=== PATIENT | female | born 1965 | race Caucasian/White ===

== ENCOUNTER 2016-09-02 08:41 | Emergency (ER) | payer OTHER ==
[~2016-09-02] VITALS: Ht 157.5 cm; Wt 80.5 kg
[2016-09-02 08:46] VITALS: TEMP 36.5; Ht 157.5 cm; Wt 80.5 kg
[2016-09-02] MEDS ORDERED: SODIUM CHLORIDE 0.9% 1000ML 1,000 ML IV STA (09:03)
[2016-09-02 09:13] LABS: BASO % 0.6 %; BASO ABS # 0.05 K/uL (0-0.2); COMPLETE YES; EOS % 1.8 %; HEMATOCRIT 40.3 % (37-47); IG% 0.1 %; LYMPH % 38.3 %; MEAN CELL VOLUME 85.6 fL (80-100); MEAN CORPUSCULAR HEMOGLOBIN 28.2 pg (25-34); MEAN PLATELET VOLUME 9.8 fL (7.4-10.4); NEUT % 51.2 %; PLATELET COUNT 253 K/uL (130-400); RED BLOOD COUNT 4.71 M/uL (4.2-5.4); WHITE BLOOD COUNT 7.83 K/uL (4.8-10.8)
[2016-09-02 09:21] LABS: PARTIAL THROMBOPLASTIN RATIO 1.1; PROTHROMBIN TIME (PATIENT) 10.7 SECONDS (9.0-12.0)
[2016-09-02 09:28] LABS: PREG INTERNAL NEGATIVE QC NEG CLEAR BACKGROUND; PREG INTERNAL POSITIVE QC POS CONTROL LINE
[2016-09-02 09:29] LABS: ALT/SGPT 45 U/L (12-78); BLOOD UREA NITROGEN 11 mg/dl (7-18); BUN/CREATININE RATIO 16.3 (10-20); CALCIUM 9.6 mg/dl (8.5-10.1); CARBON DIOXIDE 30 mmol/L (21-32); CHLORIDE 102 mmol/L (98-107); CREATININE 0.68 mg/dl (0.60-1.20); GLUCOSE 82 mg/dl (70-99); POTASSIUM 3.6 mmol/L (3.5-5.1); SODIUM 141 mmol/L (136-145)
[2016-09-02 09:34] LABS: ALKALINE PHOSPHATASE 57 U/L (45-117); AST/SGOT 32 U/L (15-37); CKMB/CK RATIO 1.7 (0-3.0)
[2016-09-02 10:00] LABS: URINE APPEARANCE CLEAR (CLEAR); URINE BILIRUBIN NEG (NEG); URINE COLOR YELLOW; URINE NITRITE NEG (NEG); URINE SPECIFIC GRAVITY 1.018 (1.000-1.030); UROBILINOGEN NEG (NEG)
--- NOTE | 2016-09-02 10:09 | DIAGNOSTIC IMAGING REPORT ---
CHEST ONE VIEW PORTABLE CLINICAL HISTORY: ABDOMINAL PAIN/GI pain COMPARISON STUDY: 09/12/2015 FINDINGS: The bones soft tissues and hemidiaphragms are normal. The cardiomediastinal silhouette is normal. The lungs are clear. The pulmonary vasculature is normal. IMPRESSION: Negative chest. Electronically signed by: Angelo Grady M.D. 09/02/2016 10:08 AM Dictated Date/Time: 09/02/2016 10:07 AM
--- NOTE | 2016-09-02 10:10 | DIAGNOSTIC IMAGING REPORT ---
KUB HISTORY: Generalized abdominal pain. COMPARISON: None. FINDINGS: The bowel gas pattern is unremarkable. There are no dilated loops of small bowel to suggest an obstruction. No renal calculi. No ureteral calculi. No pneumoperitoneum or pneumatosis. Moderate amount of well-formed stool seen throughout the colon. Round calcifications in the deep pelvis likely represent phleboliths. IMPRESSION: Unremarkable bowel gas pattern. No evidence for bowel obstruction. Moderate stool within the colon. Electronically signed by: Beau Wright M.D. 09/02/2016 10:08 AM Dictated Date/Time: 09/02/2016 10:06 AM
[2016-09-02 10:12] LABS: MANUAL MICROSCOPIC REQUIRED? NO; REVIEW REQ? NO
--- NOTE | 2016-09-02 10:27 | DIAGNOSTIC IMAGING REPORT ---
ULTRASOUND RIGHT UPPER QUADRANT ABDOMEN CLINICAL HISTORY: Epigastric abdominal pain. COMPARISON STUDY: KUB dated 09/02/2016. TECHNIQUE: Real-time, grayscale, and color flow sonography of the right upper quadrant of the abdomen was performed. Images are reviewed in the transverse and longitudinal planes. FINDINGS: Liver: The liver is normal in size and echotexture. There is no intrahepatic biliary ductal dilatation. The main portal vein is patent. Gallbladder: The gallbladder is normal in appearance. No gallstones are identified. There is no gallbladder wall thickening or pericholecystic fluid. A sonographic Rodriguez's sign is reportedly absent. The common bile duct measures up to 0.4 cm in diameter. Pancreas: Visualized portions of the pancreatic head and body are normal in appearance. The splenic vein is patent. Right kidney: Survey images of the right kidney demonstrate normal size and echotexture. There is no hydronephrosis. Ascites: None. IMPRESSION: Unremarkable sonographic assessment of the right upper quadrant. No gallstones are identified. Electronically signed by: Jeff Casiano M.D. 09/02/2016 10:26 AM Dictated Date/Time: 09/02/2016 10:25 AM
--- NOTE | 2016-09-02 10:28 | DIAGNOSTIC IMAGING REPORT ---
ULTRASOUND OF THE ABDOMINAL AORTA CLINICAL HISTORY: Epigastric abdominal pain. Aneurysm screening. COMPARISON STUDY: No priors. TECHNIQUE: Multiple lazcano scale, color Doppler, and spectral Doppler sonograms of the abdominal aorta is performed. Images are reviewed in the transverse and longitudinal planes. FINDINGS: There is no significant atherosclerotic plaque identified throughout the abdominal aorta. The proximal abdominal aorta measures 2.1 x 1.8 cm (AP times transverse), the mid abdominal aorta measures 1.7 x 1.6 cm, and the distal abdominal aorta measures 1.5 x 1.7 cm. IMPRESSION: There is no sonographic evidence of abdominal aortic aneurysm. Electronically signed by: Jeff Casiano M.D. 09/02/2016 10:27 AM Dictated Date/Time: 09/02/2016 10:26 AM
--- NOTE | 2016-09-02 10:34 | EMERGENCY ROOM VISIT NOTE ---
History Report prepared by Adonis: Nidia Albarran Under the Supervision of: Dr. Noe Oliveira D.O. First contact with patient: 08:56 Chief Complaint: ABDOMINAL PAIN Stated Complaint: ABD. PAIN History of Present Illness The patient is a 51 year old female who presents to the Emergency Room with complaints of persistent epigastric abdominal pain that began four days ago. She currently rates her discomfort as a 6/10 in severity. The patient states that movement worsens her discomfort. She describes her discomfort as a chewing pain and itchy. The patient denies any pain radiating to her chest or back, shortness of breath, nausea, diarrhea, vomiting, or change in food. She notes a persistent cough for the past six months. The patient denies any current active medical problems, but notes a history of ulcers and a previous breast surgery. She denies being on Prilosec. The patient denies any alcohol or tobacco use. She states that she has used Tylenol for pain. The patient denies seeing her PCP for her discomfort. The patient denies any decrease in appetite. She states that her last menstrual cycle was last evening which was normal. She denies that her discomfort is worsened with eating. Source of History: patient Onset: four days ago Position: abdomen (epigastric) Symptom Intensity: 6/10 Quality: other (chewing itchy) Timing: other (persistent) Associated Symptoms: No SOB, No back pain, No chest pain, No diarrhea, No nausea, No vomiting Review of Systems See HPI for pertinent positives & negatives. A total of 10 systems reviewed and were otherwise negative. Past Medical & Surgical Medical Problems: (1) Chest pain (2) Chest pain (3) Cyst removal from breast (4) Depression Family History Patient reports no known family medical history. Social History Smoking Status: Never Smoker Alcohol Use: occasionally Drug Use: none Marital Status: Housing Status: lives with family Occupation Status: student Current/Historical Medications Scheduled Omeprazole (Prilosec), 20 MG PO DAILY Ranitidine Hcl (Zantac), 150 MG PO BID Allergies Coded Allergies: Acetaminophen (Verified Adverse Reaction, Unknown, nausea, 09/02/16) Oxycodone (Verified Adverse Reaction, Unknown, nausea, 09/02/16) Physical Exam Vital Signs Date Time Temp Pulse Resp B/P Pulse Ox O2 Delivery O2 Flow Rate FiO2 09/02/16 12:06 66 14 92/62 97 3/13/17 10:54 58 14 112/75 96 Room Air 09/02/16 08:46 36.5 62 18 138/76 100 Room Air Physical Exam GENERAL: Patient is awake, alert, and in no acute distress. Patient is resting comfortably and showing no signs of anxiety EYES: The conjunctivae are clear. The pupils are round and reactive. EARS, NOSE, MOUTH AND THROAT: The nose is without any evidence of any deformity. Mucous membranes are moist tongue is midline NECK: The neck is nontender and supple. RESPIRATORY: Normal respiratory effort is noted there is no evidence of wheezing rhonchi or rales CARDIOVASCULAR: Regular rate and rhythm noted there no murmurs rubs or gallops normal S1 normal S2 GASTROINTESTINAL: The abdomen soft with epigastric and right upper quadrant tenderness to palpation. No guarding or rigidity noted. No lower abdominal tenderness was noted. BACK: No midline tenderness or or step-off noted range of motion in flexion extension as well as rotation no signs of muscle spasm noted MUSCULOSKELETAL/EXTREMITIES: There is no evidence of gross deformity full range of motion is noted in the hips and shoulders SKIN: There is no obvious evidence of any rash. There are no petechiae, pallor or cyanosis noted. NEUROLOGIC: Patient is awake alert and oriented x3 strength is symmetric patellar reflexes are 2+ bilaterally Medical Decision & Procedures ER Provider Diagnostic Interpretation: Radiology results as stated below per my review and radiologist interpretation: KUB HISTORY: Generalized abdominal pain. COMPARISON: None. FINDINGS: The bowel gas pattern is unremarkable. There are no dilated loops of small bowel to suggest an obstruction. No renal calculi. No ureteral calculi. No pneumoperitoneum or pneumatosis. Moderate amount of well-formed stool seen throughout the colon. Round calcifications in the deep pelvis likely represent phleboliths. IMPRESSION: Unremarkable bowel gas pattern. No evidence for bowel obstruction. Moderate stool within the colon. Electronically signed by: Beau Wright M.D. 09/02/2016 10:08 AM Dictated Date/Time: 09/02/2016 10:06 AM CHEST ONE VIEW PORTABLE CLINICAL HISTORY: ABDOMINAL PAIN/GI pain COMPARISON STUDY: 09/12/2015 FINDINGS: The bones soft tissues and hemidiaphragms are normal. The cardiomediastinal silhouette is normal. The lungs are clear. The pulmonary vasculature is normal. IMPRESSION: Negative chest. Electronically signed by: Angelo Grady M.D. 09/02/2016 10:08 AM Dictated Date/Time: 09/02/2016 10:07 AM ULTRASOUND OF THE ABDOMINAL AORTA CLINICAL HISTORY: Epigastric abdominal pain. Aneurysm screening. COMPARISON STUDY: No priors. TECHNIQUE: Multiple lazcano scale, color Doppler, and spectral Doppler sonograms of the abdominal aorta is performed. Images are reviewed in the transverse and longitudinal planes. FINDINGS: There is no significant atherosclerotic plaque identified throughout the abdominal aorta. The proximal abdominal aorta measures 2.1 x 1.8 cm (AP times transverse), the mid abdominal aorta measures 1.7 x 1.6 cm, and the distal abdominal aorta measures 1.5 x 1.7 cm. IMPRESSION: There is no sonographic evidence of abdominal aortic aneurysm. Electronically signed by: Jeff Casiano M.D. 09/02/2016 10:27 AM Dictated Date/Time: 09/02/2016 10:26 AM ULTRASOUND RIGHT UPPER QUADRANT ABDOMEN CLINICAL HISTORY: Epigastric abdominal pain. COMPARISON STUDY: KUB dated 09/02/2016. TECHNIQUE: Real-time, grayscale, and color flow sonography of the right upper quadrant of the abdomen was performed. Images are reviewed in the transverse and longitudinal planes. FINDINGS: Liver: The liver is normal in size and echotexture. There is no intrahepatic biliary ductal dilatation. The main portal vein is patent. Gallbladder: The gallbladder is normal in appearance. No gallstones are identified. There is no gallbladder wall thickening or pericholecystic fluid. A sonographic Rodriguez's sign is reportedly absent. The common bile duct measures up to 0.4 cm in diameter. Pancreas: Visualized portions of the pancreatic head and body are normal in appearance. The splenic vein is patent. Right kidney: Survey images of the right kidney demonstrate normal size and echotexture. There is no hydronephrosis. Ascites: None. IMPRESSION: Unremarkable sonographic assessment of the right upper quadrant. No gallstones are identified. Electronically signed by: Jeff Casiano M.D. 09/02/2016 10:26 AM Dictated Date/Time: 09/02/2016 10:25 AM Laboratory Results 09/02/16 09:00 Red Blood Count 4.71, Mean Corpuscular Volume 85.6, Mean Corpuscular Hemoglobin 28.2, Mean Corpuscular Hemoglobin Concent 33.0, Mean Platelet Volume 9.8, Neutrophils (%) (Auto) 51.2, Lymphocytes (%) (Auto) 38.3, Monocytes (%) (Auto) 8.0, Eosinophils (%) (Auto) 1.8, Basophils (%) (Auto) 0.6, Neutrophils # (Auto) 4.00, Lymphocytes # (Auto) 3.00, Monocytes # (Auto) 0.63, Eosinophils # (Auto) 0.14, Basophils # (Auto) 0.05 09/02/16 09:00 Test 09/02/16 09:00 09/02/16 09:45 White Blood Count 7.83 K/uL (4.8-10.8) Red Blood Count 4.71 M/uL (4.2-5.4) Hemoglobin 13.3 g/dL (12.0-16.0) Hematocrit 40.3 % (37-47) Mean Corpuscular Volume 85.6 fL (80-100) Mean Corpuscular Hemoglobin 28.2 pg (25-34) Mean Corpuscular Hemoglobin Concent 33.0 g/dl (32-36) Platelet Count 253 K/uL (130-400) Mean Platelet Volume 9.8 fL (7.4-10.4) Neutrophils (%) (Auto) 51.2 % Lymphocytes (%) (Auto) 38.3 % Monocytes (%) (Auto) 8.0 % Eosinophils (%) (Auto) 1.8 % Basophils (%) (Auto) 0.6 % Neutrophils # (Auto) 4.00 K/uL (1.4-6.5) Lymphocytes # (Auto) 3.00 K/uL (1.2-3.4) Monocytes # (Auto) 0.63 K/uL (0.11-0.59) Eosinophils # (Auto) 0.14 K/uL (0-0.5) Basophils # (Auto) 0.05 K/uL (0-0.2) RDW Standard Deviation 40.5 fL (36.4-46.3) RDW Coefficient of Variation 12.8 % (11.5-14.5) Immature Granulocyte % (Auto) 0.1 % Immature Granulocyte # (Auto) 0.01 K/uL (0.00-0.02) Prothrombin Time 10.7 SECONDS (9.0-12.0) Prothromb Time International Ratio 1.0 (0.9-1.1) Activated Partial Thromboplast Time 27.3 SECONDS (21.0-31.0) Partial Thromboplastin Ratio 1.1 Anion Gap 9.0 mmol/L (3-11) Est Creatinine Clear Calc Drug Dose 94.1 ml/min Estimated GFR () 115.7 Estimated GFR (Non- 99.9 BUN/Creatinine Ratio 16.3 (10-20) Calcium Level 9.6 mg/dl (8.5-10.1) Total Bilirubin 0.2 mg/dl (0.2-1) Direct Bilirubin < 0.1 mg/dl (0-0.2) Aspartate Amino Transf (AST/SGOT) 32 U/L (15-37) Alanine Aminotransferase (ALT/SGPT) 45 U/L (12-78) Alkaline Phosphatase 57 U/L (45-117) Total Creatine Kinase 46 U/L (26-192) Creatine Kinase MB 0.8 ng/ml (0.5-3.6) Creatine Kinase MB Ratio 1.7 (0-3.0) Troponin I < 0.015 ng/ml (0-0.045) Total Protein 7.7 gm/dl (6.4-8.2) Albumin 3.9 gm/dl (3.4-5.0) Lipase 176 U/L (73-393) Human Chorionic Gonadotropin, Qual NEG (NEG) Urine Color YELLOW Urine Appearance CLEAR (CLEAR) Urine pH 5.0 (4.5-7.5) Urine Specific [place] 1.018 (1.000-1.030) Urine Protein NEG (NEG) Urine Glucose (UA) NEG (NEG) Urine Ketones NEG (NEG) Urine Occult Blood NEG (NEG) Urine Nitrite NEG (NEG) Urine Bilirubin NEG (NEG) Urine Urobilinogen NEG (NEG) Urine Leukocyte Esterase NEG (NEG) Laboratory results per my review. Medications Administered Medications (Trade) Dose Ordered Sig/Aviva Route Start Time Stop Time Status Last Admin Dose Admin Sodium Chloride (Nss 1000ml) 1,000 ml @ 999 mls/hr Q1H1M STAT IV 09/02/16 09:03 09/02/16 10:03 DC 09/02/16 09:21 999 MLS/HR Al Hydroxide/Mg Hydroxide (Maalox Susp) 30 ml NOW STAT PO 09/02/16 10:52 3/13/17 10:53 DC 09/02/16 11:03 30 ML Pantoprazole Sodium (Protonix Tab) 40 mg NOW STAT PO 09/02/16 10:52 09/02/16 10:53 DC 09/02/16 11:03 40 MG ECG Indication: abdominal pain Rate (beats per minute): 55 Rhythm: sinus bradycardia Findings: no ectopy, other (no acute ST segmenta abnormalities) Comparison ECG Date: 09/12/15 Change: no significant change ED Course 0858: The patient was evaluated in room A2. A complete history and physical examination were performed. 0903: Ordered Sodium Chloride 1000 ml @ 999 mls/hr IV. 1049: I reevaluated the patient and she is resting comfortably. 1052: Ordered Protonix Tab 40 mg PO, Maalox Susp 30 ml PO. 1204: I reevaluated the patient and she is resting comfortably. I discussed all the exam findings with her and I discussed the treatment plan. She verbalized complete understanding and agreement. She is ready to go home. Medical Decision Differential diagnosis: Etiologies such as appendicitis, diverticulitis, PUD, biliary pathology, UTI, pancreatitis, obstruction, mesenteric ischemia, aortic pathology, infections, inflammatory bowel disease, renal colic, as well as others were entertained. Nursing notes reviewed. The patient is a 51-year-old female who presented to the emergency department for an evaluation of epigastric pain. The patient had reproducible epigastric and right upper quadrant pain. The patient's physical exam was not consistent with an acute surgical abdomen. She did not have an elevated white blood cell count. X-rays did not reveal signs of free air. Ultrasound of the gallbladder did not reveal any signs of acute cholecystitis. The patient was treated with Maalox and proton pump inhibitor in the emergency department. I discussed the patient's laboratory and radiographic studies with her. She was encouraged to rest and avoid any strenuous activity. She was also encouraged to continue all medications as prescribed. I recommended 24-hour follow-up with her primary care physician but because of the weather I also encouraged her to return to the emergency department immediately if symptoms change worsen or the need arises. Otherwise she was encouraged to return if she develops fever severe abdominal pain rigid abdomen might duration of pain to the right lower quadrant or if need arises. Impression Primary Impression: Epigastric abdominal pain Additional Impression: Gastritis Scribe Attestation The scribe's documentation has been prepared under my direction and personally reviewed by me in its entirety. I confirm that the note above accurately reflects all work, treatment, procedures, and medical decision making performed by me. Departure Information Dispostion Home / Self-Care Prescriptions Ranitidine Hcl (ZANTAC) 150 Mg Tab 150 MG PO BID, #60 TAB Prov: Noe Oliveira, DO 09/02/16 Omeprazole (Prilosec) 20 Mg Capcr 20 MG PO DAILY, #30 CAP Prov: Noe Oliveira, DO 09/02/16 Referrals Lambert Fatima M.D. (PCP) Forms Call Back Authorization, HOME CARE DOCUMENTATION FORM, IMPORTANT VISIT INFORMATION Patient Instructions ED Abd Pain Unkn Cause Fem, My [facility] Additional Instructions Continue all medications as prescribed. Drink plenty clear liquids. Call your family to schedule a follow-up appointment for this week. Your primary paid search analyst to schedule a follow-up appointment as well. Continue using Maalox or Mylanta as directed for symptomatically relief. Return to the emergency department immediately if he develop worsening symptoms such as high fever severe pain severe nausea vomiting or if need arises. Problem Qualifiers Additional Impression: Gastritis Gastritis type: unspecified gastritis Chronicity: acute Gastritis bleeding : presence of bleeding unspecified Qualified Codes: K29.00 - Acute gastritis without bleeding
[2016-09-02] MEDS ORDERED: PANTOprazole SOD 40 MG TAB PO STA (10:52)
[2016-09-02] MEDS ORDERED: ALUMINUM/MAGNESIUM SUSP 30 ML UDC PO STA (10:52)
[2016-09-02] MEDS ORDERED: OMEP20CA59 PO (11:11)
[2016-09-02] MEDS ORDERED: RANI150T3 PO (11:11)
[2016-09-02 12:06] VITALS: BP 92/62; PULSE 66; O2SAT 97
== END 2016-09-02 12:17 | disposition home or self-care (01) ==
LOC: C.EDB 08:42 → C.EDA 12:17
DX: R10.13 Epigastric pain (principal); K29.00 Acute gastritis without bleeding; F32.9 Major depressive disorder, single episode, unspecified; Z79.899 Other long term (current) drug therapy

== ENCOUNTER 2018-02-08 19:14 | Emergency (ER) | payer OTHER ==
[~2018-02-08] VITALS: Ht 157.5 cm; Wt 53.3 kg
[2018-02-08 19:19] VITALS: TEMP 36.7; Ht 157.5 cm; Wt 53.3 kg
--- NOTE | 2018-02-08 19:39 | EMERGENCY ROOM VISIT NOTE ---
History First contact with patient: 19:21 Chief Complaint: HEMATURIA Stated Complaint: URINATING BLOOD History of Present Illness The patient is a 52 year old female who presents to the Emergency Room with complaints of hematuria that started approximately 1 week ago. The patient also notes urinary frequency and a feeling that she is not emptying. She denies any flank pain, nausea, vomiting or fever. No problems with bowel movements. She is not on any anticoagulation. She denies any recent illnesses. Review of Systems 10 system review performed and negative unless noted in HPI or below Past Medical/Surgical History Medical Problems: (1) Chest pain (2) Chest pain (3) Cyst removal from breast (4) Depression Family History Patient reports no known family medical history. Social History Smoking Status: Never Smoker Alcohol Use: occasionally Drug Use: none Marital Status: Housing Status: lives with family Occupation Status: student Current/Historical Medications Scheduled Ciprofloxacin Hcl (Cipro), 500 MG PO BID Physical Exam Vital Signs Date Time Temp Pulse Resp B/P (MAP) Pulse Ox O2 Delivery O2 Flow Rate FiO2 02/08/18 21:05 80 20 118/70 98 02/08/18 19:19 36.7 67 18 111/71 99 Room Air Physical Exam VITALS: Vitals are noted on the nurse's note and reviewed by myself. Vital signs stable. GENERAL: 52-year-old female, in no acute distress, nondiaphoretic, well- developed well-nourished. SKIN: The skin was without rashes, erythema, edema, or bruising. . HEAD: Normocephalic atraumatic. EYES: Conjunctivae without injection, sclerae without icterus. Extraocular movements intact. MOUTH: Mucous membranes moist. NECK: No JVD. HEART: Regular rate and rhythm without murmurs gallops or rubs. LUNGS: Clear to auscultation bilaterally without wheezes, rales or rhonchi. No accessory muscle use. ABDOMEN: Positive bowel sounds x 4.Soft, nontender, without organomegaly. No guarding or rebound tenderness. No CVA tenderness bilaterally. MUSCULOSKELETAL: No muscle atrophy, erythema, or edema noted. Strength 5/5 throughout. NEURO: Patient was alert and oriented to person place and time. Normal sensation to touch. No focal neurological deficits. Medical Decision & Procedures Laboratory Results 02/08/18 19:47 Red Blood Count 4.64, Mean Corpuscular Volume 86.4, Mean Corpuscular Hemoglobin 27.8, Mean Corpuscular Hemoglobin Concent 32.2, Mean Platelet Volume 10.5, Neutrophils (%) (Auto) 71.8, Lymphocytes (%) (Auto) 18.6, Monocytes (%) (Auto) 6.8, Eosinophils (%) (Auto) 2.3, Basophils (%) (Auto) 0.3, Neutrophils # (Auto) 8.06, Lymphocytes # (Auto) 2.09, Monocytes # (Auto) 0.76, Eosinophils # (Auto) 0.26, Basophils # (Auto) 0.03 02/08/18 19:47 Test 02/08/18 19:47 White Blood Count 11.22 K/uL (4.8-10.8) Red Blood Count 4.64 M/uL (4.2-5.4) Hemoglobin 12.9 g/dL (12.0-16.0) Hematocrit 40.1 % (37-47) Mean Corpuscular Volume 86.4 fL (80-100) Mean Corpuscular Hemoglobin 27.8 pg (25-34) Mean Corpuscular Hemoglobin Concent 32.2 g/dl (32-36) Platelet Count 254 K/uL (130-400) Mean Platelet Volume 10.5 fL (7.4-10.4) Neutrophils (%) (Auto) 71.8 % Lymphocytes (%) (Auto) 18.6 % Monocytes (%) (Auto) 6.8 % Eosinophils (%) (Auto) 2.3 % Basophils (%) (Auto) 0.3 % Neutrophils # (Auto) 8.06 K/uL (1.4-6.5) Lymphocytes # (Auto) 2.09 K/uL (1.2-3.4) Monocytes # (Auto) 0.76 K/uL (0.11-0.59) Eosinophils # (Auto) 0.26 K/uL (0-0.5) Basophils # (Auto) 0.03 K/uL (0-0.2) RDW Standard Deviation 42.5 fL (36.4-46.3) RDW Coefficient of Variation 13.4 % (11.5-14.5) Immature Granulocyte % (Auto) 0.2 % Immature Granulocyte # (Auto) 0.02 K/uL (0.00-0.02) Urine Color DK YELLOW Urine Appearance TURBID (CLEAR) Urine pH 7.0 (4.5-7.5) Urine Specific [place] 1.020 (1.000-1.030) Urine Protein 3+ (NEG) Urine Glucose (UA) NEG (NEG) Urine Ketones TRACE (NEG) Urine Occult Blood 3+ (NEG) Urine Nitrite POS (NEG) Urine Bilirubin NEG (NEG) Urine Urobilinogen POS (NEG) Urine Leukocyte Esterase LARGE (NEG) Urine WBC (Auto) >30 /hpf (0-5) Urine RBC (Auto) >30 /hpf (0-4) Urine Hyaline Casts (Auto) 1-5 /lpf (0-5) Urine Epithelial Cells (Auto) 0-5 /lpf (0-5) Urine Bacteria (Auto) 4+ (NEG) Anion Gap 7.0 mmol/L (3-11) Est Creatinine Clear Calc Drug Dose 74.8 ml/min Estimated GFR () 114.9 Estimated GFR (Non- 99.2 BUN/Creatinine Ratio 16.3 (10-20) Calcium Level 8.7 mg/dl (8.5-10.1) Medications Administered Medications (Trade) Dose Ordered Sig/Aviva Route Start Time Stop Time Status Last Admin Dose Admin Sodium Chloride 1,000 ml @ 999 mls/hr Q1H1M ONCE IV 02/08/18 20:45 02/08/18 21:45 DC 02/08/18 21:04 999 MLS/HR Ciprofloxacin (Cipro Tab) 500 mg NOW STAT PO 02/08/18 20:32 02/08/18 20:34 DC 02/08/18 21:04 500 MG Ibuprofen (Motrin Tab) 600 mg ONE STAT PO 02/08/18 21:20 02/08/18 21:21 DC 02/08/18 21:25 600 MG ED Course Patient was seen and examined Vital signs including blood pressure were reviewed medications list was verified with patient Labs were obtained, and a saline lock was established Upon reevaluation, the patient was resting comfortably. We discussed her results. She voiced understanding, was comfortable being discharged home. The patient did request something for pain. She was given ibuprofen 600 mg p.o. She was given 1 dose of Cipro 500 mg p.o. I reviewed discharge instructions the patient. They voiced understanding and had no further questions. Medical Decision Differential diagnosis: UTI, pyelonephritis, renal failure, malignancy, ureteral stone, among others were entertained This patient is a 52-year-old female that presents to the emergency department with hematuria. On exam, she was nontoxic in appearance. Afebrile. There is no leukocytosis. Renal function intact. Her urinalysis is consistent with a UTI. The patient was given 1 dose of Cipro here. Given the hematuria, she will be treated with a seven-day course of Cipro. A urine culture was sent. She will follow-up with her PCP this week, and agrees to return with any worsening symptoms. This chart was completed in part utilizing [employer] Speech Voice Recognition software. Attempts were made to minimize the grammatical errors, random word insertions, pronoun errors and incomplete sentences. Any formal questions or concerns about the content, text or information contained within the body of this dictation should be directly addressed to the provider for clarification. Medication Reconcilliation Current Medication List: was personally reviewed by me Blood Pressure Screening Patient's blood pressure: Normal blood pressure Impression Primary Impression: UTI (urinary tract infection) Departure Information Dispostion Home / Self-Care Condition GOOD Prescriptions Ciprofloxacin Hcl (CIPRO) 500 Mg Tab 500 MG PO BID for 7 Days, #14 TAB Prov: Seema Gonzalez PA-C 02/08/18 Referrals Lambert Fatima M.D. (PCP) Patient Instructions My [facility] Additional Instructions You have been seen in the emergency department for a urinary tract infection. Please take the ENTIRE course of ciprofloxacin Stay well-hydrated. Increase fluids over the next several days. Please follow-up with your primary care physician if there is no improvement in your symptoms in the next 2-3 days Please do not hesitate to return to the emergency department with any new, worsening or concerning symptoms; especially, fever, flank pain or vomiting It was a pleasure participating in your care this evening
[2018-02-08 19:59] LABS: BASO % 0.3 %; BASO ABS # 0.03 K/uL (0-0.2); EOS % 2.3 %; EOS ABS # 0.26 K/uL (0-0.5); HEMATOCRIT 40.1 % (37-47); HEMOGLOBIN 12.9 g/dL (12.0-16.0); IG# 0.02 K/uL (0.00-0.02); LYMPH % 18.6 %; LYMPH ABS # 2.09 K/uL (1.2-3.4); MEAN CELL VOLUME 86.4 fL (80-100); MEAN CORPUSCULAR HEMOGLOBIN 27.8 pg (25-34); MEAN CORPUSCULAR HGB CONC 32.2 g/dl (32-36); MEAN PLATELET VOLUME 10.5 fL (7.4-10.4); MONO % 6.8 %; MONO ABS # 0.76 K/uL (0.11-0.59); NEUT % 71.8 %; NEUT ABS # 8.06 K/uL (1.4-6.5); PLATELET COUNT 254 K/uL (130-400); RED CELL DISTRIBUTION WIDTH CV 13.4 % (11.5-14.5); RED CELL DISTRIBUTION WIDTH SD 42.5 fL (36.4-46.3); WHITE BLOOD COUNT 11.22 K/uL (4.8-10.8)
[2018-02-08 20:21] LABS: CALCIUM 8.7 mg/dl (8.5-10.1); CREATININE 0.68 mg/dl (0.60-1.20); POTASSIUM 3.6 mmol/L (3.5-5.1)
[2018-02-08] MEDS ORDERED: CIPROFLOXACIN 500 MG TAB PO STA (20:32)
[2018-02-08] MEDS ORDERED: SODIUM CHLORIDE 0.9% 1000ML 1,000 ML IV ONE (20:45)
[2018-02-08] MEDS ORDERED: CIPR-255 PO (21:02)
[2018-02-08 21:05] VITALS: BP 118/70; PULSE 80; O2SAT 98
[2018-02-08] MEDS ORDERED: IBUPROFEN 600 MG TAB PO STA (21:20)
[2018-02-08] MEDS ORDERED: MAGNESIUM OXIDE 400 MG TAB PO STA (21:25)
--- NOTE | 2018-02-10 12:59 | Pharmacy Progress Note ---
ED Pharmacist Culture FollowUp Date of Service: Feb 10, 2018. Patient was sent home with a prescription for Ciprofloxacin 500mg PO BID x 7 days, which should cover the e coli growing from the patient's URINE culture.
== END 2018-02-08 21:35 | disposition home or self-care (01) ==
LOC: C.EDB 19:17 → C.EDA 21:35
DX: N39.0 Urinary tract infection, site not specified (principal); F32.9 Major depressive disorder, single episode, unspecified

== ENCOUNTER 2022-03-21 17:13 | Inpatient (IN) ==
--- NOTE | 2022-03-21 17:24 | ED Triage Note ---
Date of Service March 21, 2022 History of Present Illness This patient was briefly evaluated while in triage. An abbreviated physical exam was performed. This patient is a 56-year-old Female with past medical history of GERD who presents to the ED for evaluation of nausea, vomiting, diarrhea that started today. Has had a sore throat for 5 days. Some chills today. Also has abdominal pain all over. No blood noticed in the emesis or stool. Denies alcohol use. No known sick contacts. Physical Exam CONSTITUTIONAL: No acute distress. Appears to feel unwell. RESPIRATORY: Clear to auscultation bilaterally. Equal expansion bilaterally. CARDIOVASCULAR: Regular rate and rhythm with no murmurs, rubs or gallops. Normal peripheral perfusion. No peripheral edema. GASTROINTESTINAL: Diffuse tenderness, no acute abdomen. NEUROLOGIC: Alert and oriented X 4 with normal affect. Initial orders for labs and / or imaging were placed and patient was placed in the waiting area until a bed is available. Please see further documentation for the full ED course.
[2022-03-21] MEDS ORDERED: ONDANSETRON INJ 2 MG/ML 2 ML VIAL IV STA ×2 (17:30→21:55)
[2022-03-21] MEDS ORDERED: SODIUM CHLORIDE 0.9% 1000ML 1,000 ML IV STA (17:30)
[2022-03-21 18:14] LABS: Basophils # (auto) 0.05 K/uL (0-0.2); Basophils % (auto) 0.3 %; Eosinophils # (auto) 0.26 K/uL (0-0.50); Eosinophils % (auto) 1.6 %; Hematocrit (blood only) 46.6 % (34.1-44.9); Hemoglobin 15.1 g/dl (12.0-16.0); Immature Granulocytes # (auto) 0.06 K/uL (0.00-0.02); Immature Granulocytes % (auto) 0.4 %; Lymphocytes # (auto) 1.07 K/uL (1.2-3.4); Lymphocytes % (auto) 6.6 %; Mean Corpuscular Hemoglobin 27.4 pg (25.0-34.0); Mean Corpuscular Hgb Conc 32.4 g/dL (32.0-36.0); Mean Corpuscular Volume 84.4 fL (80.0-100.0); Mean Platelet Volume 10.6 fL (9.4-12.3); Monocytes # (auto) 1.07 K/uL (0.24-0.82); Monocytes % (auto) 6.6 %; Neutrophils # (auto) 13.81 K/uL (1.4-6.5); Neutrophils % (auto) 84.5 %; Platelet Count 265 K/uL (130-400); RDW Coefficient of Variation 13.3 % (11.5-14.5); RDW Standard Deviation 41.1 fL (36.4-46.3); Red Blood Count 5.52 M/uL (3.93-5.22); White Blood Count 16.32 K/ul (4.8-10.8)
[2022-03-21 18:22] LABS: Appearance Urine Cloudy (Clear); Bacteria Urine Automated Negative (Negative); Blood Urine Negative (Negative); Color Urine Dark Yellow; Epithelial Cell Urine Auto >30 /lpf (0-5); Glucose Urine UA Negative (Negative); Ketones Urine 1+ (Negative); Leukocyte Esterase Urine Trace (Negative); Nitrite Urine Negative (Negative); Protein Urine 2+ (Negative); Specific Gravity Urine 1.022 (1.000-1.030); Urobilinogen Urine Negative (Negative); pH Urine 5.5 (4.5-7.5)
[2022-03-21 18:23] LABS: Prothrombin Time 10.8 Seconds (9.0-12.0)
[2022-03-21 18:32] LABS: Bilirubin Urine 1+ (Negative)
[2022-03-21 18:34] LABS: Albumin Globulin Ratio 1.4 (0.9-2); Albumin Level 4.8 gm/dl (3.4-5.0); BUN Creatinine Ratio 15.8 (10-20); Bilirubin,Total 0.4 mg/dl (0.2-1.0); Calcium 10.4 mg/dl (8.5-10.1); Creatinine Clr Calc Pharmacy 53.4 ml/min; Est GFR (African American) 76.5 ml/min; Globulin 3.4 gm/dl (2.5-4.0); Potassium 4.1 mmol/L (3.5-5.1); Total Protein 8.2 gm/dl (6.0-8.3)
[2022-03-21] MEDS ORDERED: ACETAMINOPHEN 1,000 MG/100 ML VIAL IV STA (18:46)
[2022-03-21] MEDS ORDERED: KETOROLAC TROMETHAMINE 15 MG/ML VIAL IV STA (18:46)
[2022-03-21] MEDS ORDERED: SODIUM CHLORIDE 0.9% 1000ML 1,000 ML IV ONE (18:46)
[2022-03-21 18:47] LABS: Mucus Urine Present (None Prsent)
[2022-03-21 18:48] LABS: RBC Urine Automated 0-4 /hpf (0-4)
--- NOTE | 2022-03-21 18:51 | Emergency Department Note ---
Impression & Plan Acute upper abdominal pain, Leukocytosis, Ileitis, Diarrhea ED Provider Note NAME: PATRICIA AC AGE: 56 SEX: F : 1965 ARRIVES VIA: Walk-In INFORMANT: [Patient] ED PROVIDER(S): [Jeff James MD] CHIEF COMPLAINT: Diarrhea and vomiting HISTORY OF PRESENT ILLNESS: The patient is a 56-year-old female who has had 5 days of a sore throat and some throat tightness. Today, she did not feel well this morning and began having vomiting and diarrhea. She feels dizzy and lightheaded. She has mid abdominal pain that is a 10/10. No blood in the stool or vomit. She has not had fever but she has noticed some chills. No cough or congestion. No urinary complaints. No recent sick contacts. REVIEW OF SYSTEMS: See HPI for pertinent positives and negatives. A total of ten systems were reviewed and were otherwise negative. PMHx/PSHx: See Below SOCIAL HISTORY: See Below. PHYSICAL EXAM: GENERAL: Patient is in no acute distress. HEENT: No acute trauma, normocephalic atraumatic, mucous membranes moist, no nasal congestion, no scleral icterus. Very mild throat erythema without exudate. No uvular swelling. NECK: No stridor, no adenopathy, no meningismus, trachea is midline. LUNGS: Clear to auscultation bilaterally, no wheeze, no rhonchi, breath sounds equal. HEART: Without murmurs gallops or rubs, regular rate and rhythm. ABDOMEN: Soft, moderately tender to the entire upper abdomen, no peritonitis. EXTREMITIES: No cyanosis or edema, full range of motion of all the joints without pain or difficulty, no signs for acute trauma. NEUROLOGIC: Oriented x 3, no acute motor or sensory deficits, no focal weakness. SKIN: No rash, no jaundice, no diaphoresis. DIFFERENTIAL DIAGNOSIS: Appendicitis, ovarian cyst, ovarian torsion, diverticulitis, UTI, obstruction, mesenteric ischemia, aortic pathology, inflammatory bowel disease, renal colic, PUD, pancreatitis, biliary pathology, hernia, volvulus, constipation, foodborne or viral illness, COVID-19, strep pharyngitis, as well as other pathologies. EMERGENCY DEPARTMENT COURSE/PROCEDURES: ECG: Indication was abdominal pain. The ECG shows a normal sinus rhythm with a rate of 71. There is no ST elevation, there are no PVCs. The QTc is 436. Some baseline artifact is seen. Continuous Cardiac Monitoring: An order was placed for continuous cardiac monitoring. The monitor shows a rate of 86 with normal sinus rhythm. MEDICAL DECISION MAKING: There is a moderate leukocytosis, this could be consistent with infection. There is a normal hemoglobin and platelet count. No renal failure or significant electrolyte abnormality. Lactic acid level is not elevated making severe sepsis less likely. No worrisome liver enzyme elevation. No evidence for pancreatitis. ECG shows a normal sinus rhythm, no ST elevation. Cardiac enzyme testing x1 is not consistent with acute cardiac injury. Urinalysis shows contamination, no obvious infection. COVID, mono, influenza, RSV and strep testing returned negative. Abdominal and pelvis CT suggests ileitis. No abscess, no bowel obstruction. Chest x-ray did not show pneumonia or free air. Patient was given IV saline, 2 L. She was given IV Zofran for nausea, second dose of IV Zofran was given. She received IV Toradol and IV morphine for pain. She was given IV Tylenol for pain. The patient presents with a sore throat and abdominal pain. She appears to have ileitis by work-up. Her illness certainly may be viral. Given the findings, given her complaints, I do think further work-up and care in the hospital is warranted. I spoke with the patient and case management. The on-call hospitalist was consulted. Past Med/Surg History Medical History (Updated 03/22/22 @ 02:03 by Jeff James MD) GERD (gastroesophageal reflux disease) Social History Smoking Status: Never smoker Preferred Language: Cymraes Feels Safe at Home: Yes Allergies Allergies Allergy/AdvReac Type Severity Reaction Status Date / Time oxycodone AdvReac Unknown nausea Verified 09/29/18 22:56 Home Meds Home Medications Medication Instructions Recorded Confirmed albuterol sulfate 90 mcg/actuation 2 puff inhalation Q4 PRN Wheezing 09/29/18 09/29/18 aerosol inhaler (Ventolin HFA) fluticasone propionate 50 2 spray intranasal Q12 09/29/18 09/29/18 mcg/actuation nasal spray,suspension (Flonase Allergy Relief) omeprazole 20 mg capsule,delayed 20 mg PO DAILY 09/29/18 09/29/18 release ranitidine HCl 150 mg tablet 300 mg PO HS 09/29/18 09/29/18 (Zantac) Results & Data (ED) Vital Signs Vital Signs - 24 hr 03/21/22 17:23 03/21/22 21:14 03/21/22 23:00 Temperature 36.5 C Temperature Source Temporal Artery Scan Pulse Rate 86 Pulse Rate [Finger] 65 97 H Pulse Rhythm [Finger] Regular Respiratory Rate 20 18 20 Respiratory Effort / Characteristics Non-Labored Non-Labored Respiratory Depth Normal Normal Blood Pressure 90/53 L Blood Pressure [Right Arm] 118/76 101/61 Blood Pressure Mean 65 Blood Pressure Mean [Right Arm] 90 74 Blood Pressure Position [Right Arm] Lying Pulse Oximetry 100 97 93 Oxygen Delivery Method Room Air Room Air Sepsis Recent Fever Within 48 Hours No Sepsis New/Unexplained Change in Mental Status N/A Sepsis Action Taken by Nursing No Action Required Home Medications Current Medication List: was personally reviewed by me Laboratory Data Attestation: I reviewed the patient's lab results. Result diagrams: 03/21/22 17:55 03/21/22 17:55 Lab Results 03/21/22 03/21/22 03/21/22 Range/Units 17:52 17:55 17:55 WBC 16.32 H (4.8-10.8) K/ul RBC 5.52 H (3.93-5.22) M/uL Hgb 15.1 (12.0-16.0) g/dl Hct 46.6 H (34.1-44.9) % MCV 84.4 (80.0-100.0) fL MCH 27.4 (25.0-34.0) pg MCHC 32.4 (32.0-36.0) g/dL RDW Std Deviation 41.1 (36.4-46.3) fL RDW Coeff of Lana 13.3 (11.5-14.5) % Plt Count 265 (130-400) K/uL MPV 10.6 (9.4-12.3) fL Immature Gran % (Auto) 0.4 % Neut % (Auto) 84.5 % Lymph % (Auto) 6.6 % Rolette % (Auto) 6.6 % Eos % (Auto) 1.6 % Baso % (Auto) 0.3 % Neut # (Auto) 13.81 H (1.4-6.5) K/uL Lymph # (Auto) 1.07 L (1.2-3.4) K/uL Rolette # (Auto) 1.07 H (0.24-0.82) K/uL Eos # (Auto) 0.26 (0-0.50) K/uL Baso # (Auto) 0.05 (0-0.2) K/uL Immature Gran # (Auto) 0.06 H (0.00-0.02) K/uL PT 10.8 (9.0-12.0) Seconds INR 1.0 (0.9-1.1) Sodium (136-145) mmol/L Potassium (3.5-5.1) mmol/L Chloride (98-107) mmol/L Carbon Dioxide (21-32) mmol/L Anion Gap (3-11) BUN (6-23) mg/dl Creatinine (0.6-1.2) mg/dl Est Cr Clr Drug Dosing ml/min Est GFR ( Amer) ml/min Est GFR (Non-Af Amer) ml/min BUN/Creatinine Ratio (10-20) Glucose (70-99(Fasting)) mg/dl Lactate (0.4-2.0) mmol/L Calcium (8.5-10.1) mg/dl Total Bilirubin (0.2-1.0) mg/dl AST (13-39) U/L ALT (7-52) U/L Alkaline Phosphatase (34-104) U/L Troponin I High Sens (0-14) pg/ml Total Protein (6.0-8.3) gm/dl Albumin (3.4-5.0) gm/dl Globulin (2.5-4.0) gm/dl Albumin/Globulin Ratio (0.9-2) Lipase (11-82) U/L Urine Color Urine Appearance (Clear) Urine pH (4.5-7.5) Ur Specific [place] (1.000-1.030) Urine Protein (Negative) Urine Glucose (UA) (Negative) Urine Ketones (Negative) Urine Blood (Negative) Urine Nitrite (Negative) Urine Bilirubin (Negative) Urine Urobilinogen (Negative) Ur Leukocyte Esterase (Negative) Urine WBC (Auto) (0-5) /hpf Urine RBC (Auto) (0-4) /hpf U Hyaline Cast (Auto) (0-5) /lpf U Epithel Cells (Auto) (0-5) /lpf Urine Bacteria (Auto) (Negative) Ur Renal Epithelial Cell Urine Mucus (None Prsent) Urine Yeast SARS-CoV-2 (PCR) NEGATIVE (Negative) Monoscreen (Negative) Influenza Type A (PCR) Negative (Neg) Influenza Type B (PCR) Negative (Neg) RSV (RT-PCR) Negative (Neg) Group A Strep (PCR) (NotDetected) 03/21/22 03/21/22 03/21/22 Range/Units 17:55 17:55 17:55 WBC (4.8-10.8) K/ul RBC (3.93-5.22) M/uL Hgb (12.0-16.0) g/dl Hct (34.1-44.9) % MCV (80.0-100.0) fL MCH (25.0-34.0) pg MCHC (32.0-36.0) g/dL RDW Std Deviation (36.4-46.3) fL RDW Coeff of Lana (11.5-14.5) % Plt Count (130-400) K/uL MPV (9.4-12.3) fL Immature Gran % (Auto) % Neut % (Auto) % Lymph % (Auto) % Rolette % (Auto) % Eos % (Auto) % Baso % (Auto) % Neut # (Auto) (1.4-6.5) K/uL Lymph # (Auto) (1.2-3.4) K/uL Rolette # (Auto) (0.24-0.82) K/uL Eos # (Auto) (0-0.50) K/uL Baso # (Auto) (0-0.2) K/uL Immature Gran # (Auto) (0.00-0.02) K/uL PT (9.0-12.0) Seconds INR (0.9-1.1) Sodium 142 (136-145) mmol/L Potassium 4.1 (3.5-5.1) mmol/L Chloride 106 (98-107) mmol/L Carbon Dioxide 26 (21-32) mmol/L Anion Gap 10 (3-11) BUN 15 (6-23) mg/dl Creatinine 0.95 (0.6-1.2) mg/dl Est Cr Clr Drug Dosing 53.4 ml/min Est GFR ( Amer) 76.5 ml/min Est GFR (Non-Af Amer) 66.0 ml/min BUN/Creatinine Ratio 15.8 (10-20) Glucose 96 (70-99(Fasting)) mg/dl Lactate 1.5 (0.4-2.0) mmol/L Calcium 10.4 H (8.5-10.1) mg/dl Total Bilirubin 0.4 (0.2-1.0) mg/dl AST 24 (13-39) U/L ALT 23 (7-52) U/L Alkaline Phosphatase 76 (34-104) U/L Troponin I High Sens 6.0 (0-14) pg/ml Total Protein 8.2 (6.0-8.3) gm/dl Albumin 4.8 (3.4-5.0) gm/dl Globulin 3.4 (2.5-4.0) gm/dl Albumin/Globulin Ratio 1.4 (0.9-2) Lipase 19 (11-82) U/L Urine Color Urine Appearance (Clear) Urine pH (4.5-7.5) Ur Specific [place] (1.000-1.030) Urine Protein (Negative) Urine Glucose (UA) (Negative) Urine Ketones (Negative) Urine Blood (Negative) Urine Nitrite (Negative) Urine Bilirubin (Negative) Urine Urobilinogen (Negative) Ur Leukocyte Esterase (Negative) Urine WBC (Auto) (0-5) /hpf Urine RBC (Auto) (0-4) /hpf U Hyaline Cast (Auto) (0-5) /lpf U Epithel Cells (Auto) (0-5) /lpf Urine Bacteria (Auto) (Negative) Ur Renal Epithelial Cell Urine Mucus (None Prsent) Urine Yeast SARS-CoV-2 (PCR) (Negative) Monoscreen Negative (Negative) Influenza Type A (PCR) (Neg) Influenza Type B (PCR) (Neg) RSV (RT-PCR) (Neg) Group A Strep (PCR) (NotDetected) 03/21/22 03/21/22 Range/Units 17:55 17:55 WBC (4.8-10.8) K/ul RBC (3.93-5.22) M/uL Hgb (12.0-16.0) g/dl Hct (34.1-44.9) % MCV (80.0-100.0) fL MCH (25.0-34.0) pg MCHC (32.0-36.0) g/dL RDW Std Deviation (36.4-46.3) fL RDW Coeff of Lana (11.5-14.5) % Plt Count (130-400) K/uL MPV (9.4-12.3) fL Immature Gran % (Auto) % Neut % (Auto) % Lymph % (Auto) % [place] % (Auto) % Eos % (Auto) % Baso % (Auto) % Neut # (Auto) (1.4-6.5) K/uL Lymph # (Auto) (1.2-3.4) K/uL [place] # (Auto) (0.24-0.82) K/uL Eos # (Auto) (0-0.50) K/uL Baso # (Auto) (0-0.2) K/uL Immature Gran # (Auto) (0.00-0.02) K/uL PT (9.0-12.0) Seconds INR (0.9-1.1) Sodium (136-145) mmol/L Potassium (3.5-5.1) mmol/L Chloride (98-107) mmol/L Carbon Dioxide (21-32) mmol/L Anion Gap (3-11) BUN (6-23) mg/dl Creatinine (0.6-1.2) mg/dl Est Cr Clr Drug Dosing ml/min Est GFR ( Amer) ml/min Est GFR (Non-Af Amer) ml/min BUN/Creatinine Ratio (10-20) Glucose (70-99(Fasting)) mg/dl Lactate (0.4-2.0) mmol/L Calcium (8.5-10.1) mg/dl Total Bilirubin (0.2-1.0) mg/dl AST (13-39) U/L ALT (7-52) U/L Alkaline Phosphatase (34-104) U/L Troponin I High Sens (0-14) pg/ml Total Protein (6.0-8.3) gm/dl Albumin (3.4-5.0) gm/dl Globulin (2.5-4.0) gm/dl Albumin/Globulin Ratio (0.9-2) Lipase (11-82) U/L Urine Color Dark Yellow Urine Appearance Cloudy A (Clear) Urine pH 5.5 (4.5-7.5) Ur Specific [place] 1.022 (1.000-1.030) Urine Protein 2+ H (Negative) Urine Glucose (UA) Negative (Negative) Urine Ketones 1+ H (Negative) Urine Blood Negative (Negative) Urine Nitrite Negative (Negative) Urine Bilirubin 1+ H (Negative) Urine Urobilinogen Negative (Negative) Ur Leukocyte Esterase Trace H (Negative) Urine WBC (Auto) 10-30 H (0-5) /hpf Urine RBC (Auto) 0-4 (0-4) /hpf U Hyaline Cast (Auto) 10-30 H (0-5) /lpf U Epithel Cells (Auto) >30 H (0-5) /lpf Urine Bacteria (Auto) Negative (Negative) Ur Renal Epithelial Cell Not Reportable Urine Mucus Present A (None Prsent) Urine Yeast Not Reportable SARS-CoV-2 (PCR) (Negative) Monoscreen (Negative) Influenza Type A (PCR) (Neg) Influenza Type B (PCR) (Neg) RSV (RT-PCR) (Neg) Group A Strep (PCR) NOT DETECTED (NotDetected) Administered Medications Discontinued Medications Sodium Chloride (Nss 1000ml) 1,000 mls @ 999 mls/hr IV .Q1H1M STA Stop: 03/21/22 18:30 Last Infusion: 03/21/22 19:23 Dose: 0 mls/hr Documented By: Admin: 03/21/22 18:01 Dose: 999 mls/hr Documented By: ALONDRA Acetaminophen (Ofirmev) 1,000 mg in 100 mls @ 400 mls/hr IV NOW STA Stop: 03/21/22 19:00 Last Infusion: 03/21/22 19:21 Dose: 0 mls/hr Documented By: Admin: 03/21/22 18:55 Dose: 400 mls/hr Documented By: ENEDELIA Sodium Chloride (Nss 1000ml) 1,000 mls @ 999 mls/hr IV .Q1H1M ONE Stop: 03/21/22 19:46 Last Infusion: 03/21/22 20:03 Dose: 0 mls/hr Documented By: Admin: 03/21/22 18:55 Dose: 999 mls/hr Documented By: ENEDELIA Ioversol (Ioversol 350 Mg 100ml Prefilled Syringe) 92 ml IV ONCE ONE Stop: 03/21/22 20:12 Last Admin: 03/21/22 20:12 Dose: 92 ml Documented By: LUÍS Ketorolac Tromethamine (Ketorolac Tromethamine 15 Mg/Ml Vial) 15 mg IV NOW STA Stop: 03/21/22 18:47 Last Admin: 03/21/22 18:55 Dose: 15 mg Documented By: ENEDELIA Morphine Sulfate (Morphine Sulfate 4 Mg/Ml 1 Ml Carp\Vial) 4 mg IV NOW STA Stop: 03/21/22 21:56 Last Admin: 03/21/22 22:09 Dose: 4 mg Documented By: ENEDELIA Ondansetron HCl (Ondansetron Inj 2 Mg/Ml 2 Ml Vial) 4 mg IV NOW STA Stop: 03/21/22 17:31 Last Admin: 03/21/22 18:01 Dose: 4 mg Documented By: ALONDRA Ondansetron HCl (Ondansetron Inj 2 Mg/Ml 2 Ml Vial) 4 mg IV NOW STA Stop: 03/21/22 21:56 Last Admin: 03/21/22 22:09 Dose: 4 mg Documented By: ENEDELIA Imaging Data Radiologist's Impression: Abdomen/Pelvis CT 03/21/22 17:30 CT OF THE ABDOMEN AND PELVIS WITH CONTRAST CLINICAL HISTORY: Diffuse abdominal pain, n/v/d COMPARISON STUDY: KUB September 29, 2018. Right upper quadrant ultrasound September 02, 2016. TECHNIQUE: Following IV administration of 92 mL of Optiray, axial images of the abdomen and pelvis were obtained from the lung bases to the proximal femurs. Images were reviewed in the axial, sagittal, and coronal planes. IV contrast was administered without complication. Automated exposure control was utilized for the study. A dose lowering technique was utilized adhering to the principles of ALARA. CT DOSE: 272.16 mGy.cm FINDINGS: Lung bases are unremarkable. No pneumatosis, free air or portal venous gas is present. Subcentimeter right hepatic lobe lesion likely reflects a cyst. Spleen, adrenal glands and pancreas are unremarkable. There is no biliary or pancreatic ductal dilatation. No peripancreatic or pericholecystic stranding is noted. There is a 9 mm lesion within the lower pole of the left kidney on axial image 165 of 446. This measures above water attenuation. This is difficult to characterize given its small size. There are numerous additional smaller renal lesions which probably reflect cysts. There is no hydronephrosis. Major vasculat ure is patent. The colon is mildly fluid-filled. Note is made of moderate wall thickening with mild adjacent stranding of multiple ileal loops. There is no abscess. The appendix is normal. Apparent wall thickening of portions of the colon is probably due to underdistention. 2.2 cm water attenuation left adnexal lesion probably reflects an ovarian cyst. No acute fracture or suspicious lesion within the visualized skeletal structures. IMPRESSION: 1. Moderate wall thickening with mild adjacent stranding of multiple ileal loops. This represents an ileitis. Although nonspecific, this is likely infectious or inflammatory in etiology. No abscess. No bowel obstruction. Normal appendix. 2. Apparent wall thickening of portions of the colon. This is likely due to underdistention however colonic involvement cannot be excluded and this could reflect an enterocolitis. 3. 9 mm left renal lesion. This is difficult difficult to characterize given its small size. This could reflect a complex cyst or small solid renal lesion. Nonemergent renal protocol MRI is recommended. ACT 112: Positive. There are findings on this exam that require communication between the performing entity and the patient following Patient Test Result I nformation Act ([place] Act 112) guidelines. Electronically signed by: Miko Stanton M.D. 03/21/2022 9:34 PM Chest X-Ray 03/21/22 17:31 XR chest 1V portable CLINICAL HISTORY: Cough. COMPARISON STUDY: Chest radiograph September 29, 2018. FINDINGS: Lung volumes are normal. Lungs are clear. There is no pneumothorax or pleural effusion. Cardiac size is normal. Mediastinal contours are normal. There is no evidence for pulmonary edema. IMPRESSION: No acute cardiopulmonary findings. ACT 112: Negative or not required by law. Electronically signed by: Miko Stanton M.D. 03/21/2022 7:07 PM Discharge Plan Visit Data Chief Complaint: Vomiting Stated Complaint: VOMITTING,SORE AND SOLLEN THROAT ED Provider: Jeff James Discharge Problem: Acute upper abdominal pain, Leukocytosis, Ileitis, Diarrhea Patient Disposition: Admitted As Inpatient Condition: Fair Discharge Instructions Interventions: ED Discharge Assessment Last Done: 03/22/22 00:17
--- NOTE | 2022-03-21 19:08 | XRay Report ---
XR chest 1V portable CLINICAL HISTORY: Cough. COMPARISON STUDY: Chest radiograph September 29, 2018. FINDINGS: Lung volumes are normal. Lungs are clear. There is no pneumothorax or pleural effusion. Car diac size is normal. Mediastinal contours are normal. There is no evidence for pulmonary edema. IMPRESSION: No acute cardiopulmonary findings. ACT 112: Negative or not required by law. Electronically signed by: Miko Stanton M.D. 03/21/2022 7:07 PM
[2022-03-21 19:09] LABS: Influenza A virus by PCR Negative (Neg); Influenza B virus by PCR Negative (Neg); RSV by PCR Negative (Neg); SARS CoV2 RNA(COVID-19) InHosp NEGATIVE (Negative)
[2022-03-21] MEDS ORDERED: IOVERSOL 350 MG 100mL Prefilled Syringe IV ONE (20:11)
--- NOTE | 2022-03-21 21:36 | CT Scan Report ---
CT OF THE ABDOMEN AND PELVIS WITH CONTRAST CLINICAL HISTORY: Diffuse abdominal pain, n/v/d COMPARISON STUDY: KUB September 29, 2018. Right upper quadrant ultrasound September 02, 2016. TECHNIQUE: Following IV administration of 92 mL of Optiray, axial images of the abdomen and pelvis we re obtained from the lung bases to the proximal femurs. Images were reviewed in the axial, sagittal, and coronal planes. IV contrast was administered without complication. Automated exposure control wa s utilized for the study. A dose lowering technique was utilized adhering to the principles of ALARA . CT DOSE: 272.16 mGy.cm FINDINGS: Lung bases are unremarkable. No pneumatosis, free air or portal venous gas is present. Subc entimeter right hepatic lobe lesion likely reflects a cyst. Spleen, adrenal glands and pancreas are u nremarkable. There is no biliary or pancreatic ductal dilatation. No peripancreatic or pericholecysti c stranding is noted. There is a 9 mm lesion within the lower pole of the left kidney on axial image 165 of 446. This measures above water attenuation. This is difficult to characterize given its small size. There are numerous additional smaller renal lesions which probably reflect cysts. There is no h ydronephrosis. Major vasculature is patent. The colon is mildly fluid-filled. Note is made of moderat e wall thickening with mild adjacent stranding of multiple ileal loops. There is no abscess. The appe ndix is normal. Apparent wall thickening of portions of the colon is probably due to underdistention. 2.2 cm water attenuation left adnexal lesion probably reflects an ovarian cyst. No acute fracture or suspicious lesion within the visualized skeletal structures. IMPRESSION: 1. Moderate wall thickening with mild adjacent stranding of multiple ileal loops. This represents an ileitis. Although nonspecific, this is likely infectious or inflammatory in etiology. No abscess. No bowel obstruction. Normal appendix. 2. Apparent wall thickening of portions of the colon. This is likely due to underdistention however c olonic involvement cannot be excluded and this could reflect an enterocolitis. 3. 9 mm left renal lesion. This is difficult difficult to characterize given its small size. This cou ld reflect a complex cyst or small solid renal lesion. Nonemergent renal protocol MRI is recommended. ACT 112: Positive. There are findings on this exam that require communication between the performing entity and the patient following Patient Test Result Information Act ([place] Act 112) guidelines. Electronically signed by: Miko Stanton M.D. 03/21/2022 9:34 PM
[2022-03-21] MEDS ORDERED: MoRPHine SULFATE 4 MG/ML 1 ML CARP\\VIAL IV STA (21:55)
--- NOTE | 2022-03-22 01:51 | History and Physical Report ---
DATE OF ADMISSION: 03/21/2022. CHIEF COMPLAINT: Nausea, vomiting, and diarrhea. HISTORY OF PRESENT ILLNESS: A 56-year-old female with past medical history significant for gastric ulcer, history of dysphagia, rectocele, restless legs syndrome, history of pneumonia, who presents with nausea, vomiting and diarrhea. The patient says she has sore throat for the last 5 days, but today it is getting better, but today she had several episodes of diarrhea, and she felt almost passed out on the commode, she fell down, but she did not lose consciousness, then she started vomiting several episodes and had some abdominal discomfort. As this is not getting better, and was having profuse vomiting and diarrhea, she was brought to the hospital. Denies any fever, but she felt lot of chills today. Currently, no cough. She has some right earache for a couple of days, but it resolved now. No headache, no blurred visions, currently no runny nose, no chest pain. No blood in the stools. Normal bladder movements. No rash. Currently, resting comfortably and hemodynamically stable. No recent use of antibiotics. Except for granddaughter who has cold symptoms, no one is sick in the house. ALLERGIES: TO OXYCODONE AND PERCOCET. PAST MEDICAL HISTORY: As mentioned above. PAST SURGICAL HISTORY: Breast surgery, colonoscopy, EGDs. MEDICATIONS: The patient as per [facility], she is on omeprazole, famotidine, Advair Diskus, albuterol, montelukast, Singulair, Flonase, gabapentin, Flexeril, citalopram, Robomol, multivitamin trazadone, but she says she is not taking her medications. FAMILY HISTORY: Significant for paternal grandmother had breast cancer; father has colitis; paternal grandfather has heart disorder; mother has hypertension; paternal grandfather had lung disorder. SOCIAL HISTORY: , no smoking. Alcohol, rarely. No drug use. REVIEW OF SYSTEMS: As per HPI. Rest of review of systems is negative. PHYSICAL EXAMINATION: GENERAL: The patient is of moderate build, not in acute distress. VITAL SIGNS: Temperature 36.5, pulse 65, respiratory rate 18, blood pressure 118/76, oxygen 97% on room air. HEENT: Pupils equal, round and reactive to light. Oral mucosa moist. NECK: No JVD. No neck masses. CARDIOVASCULAR: S1 and S2 heard. Regular rate and rhythm. No murmur, no gallop. RESPIRATORY SYSTEM: Normal AP diameter. No accessory muscle use. No wheezing, no crackles. ABDOMEN: Soft, bowel sounds present. Mild abdominal discomfort. No guarding, no rigidity, no distention. CENTRAL NERVOUS SYSTEM: Cranial nerves II through XII grossly intact, nonfocal. EXTREMITIES: No edema, no erythema. LABORATORY DATA: WBC 16.3, hemoglobin 15.1, hematocrit 46.6, platelets 265. PT 10.8, INR 1. Sodium 142, potassium 4.1, chloride 106, bicarb 26, BUN 15, creatinine 0.9, serum glucose 96, lactate 1.5, calcium 10.4, total bilirubin 0.4, AST 24, ALT 23, alkaline phosphatase 76, troponin 1 high sensitivity 6, lipase 19. Urinalysis: Trace leukocyte esterase, negative for bacteria. SARS-CoV-2 PCR negative. Mckenzie screen negative. Influenza A and B PCR negative. RSV PCR negative. Group A strep PCR not detected. IMAGING DATA: Chest x-ray, no acute cardiopulmonary findings. CT of abdomen and pelvis with contrast, moderate wall thickening with mild adjacent stranding of the multiple ileal loops, this represents ileitis, nonspecific, likely infectious and inflammatory. No abscess, no bowel obstruction, normal appendix, possible enterocolitis. A 9-mm left renal lesion. Nonemergent renal protocol MRI is recommended. EKG: Normal sinus rhythm at a rate of 71. Nonspecific T-wave abnormalities. ASSESSMENT AND PLAN: This is a 56-year-old female who presents with nausea, vomiting, and diarrhea. 1. Nausea, vomiting, and diarrhea after 5 days of sore throat: COVID is negative. Influenza, RSV negative. Group A strep is negative. Stool studies ordered. We will follow the results. We will keep her n.p.o. for now, IV fluids, IV antiemetics, IV pain medicines p.r.n. and GI consult in a.m. for further recommendations. IV Pepcid. 2. Gastroesophageal reflux disease: Placed on Pepcid. 3. Deep venous thrombosis prophylaxis: Placed on Lovenox. DISPOSITION: Closely monitor in the medical floor. PT/OT prior to discharge. Social service to help with discharge planning. Job ID: [id number] [facility]
[2022-03-22] MEDS: D5W AND 1/2NSS 1,000 ML IV SCH ×3 (02:02→17:57)
[2022-03-22] MEDS: ONDANSETRON INJ 2 MG/ML 2 ML VIAL IV PRN ×2 (03:28→21:31)
[2022-03-22 06:00] LABS: Basophils # (auto) 0.04 K/uL (0-0.2); Basophils % (auto) 0.6 %; Eosinophils # (auto) 0.29 K/uL (0-0.50); Eosinophils % (auto) 4.1 %; Hematocrit (blood only) 36.2 % (34.1-44.9); Hemoglobin 11.8 g/dl (12.0-16.0); Immature Granulocytes # (auto) 0.02 K/uL (0.00-0.02); Immature Granulocytes % (auto) 0.3 %; Lymphocytes # (auto) 1.31 K/uL (1.2-3.4); Lymphocytes % (auto) 18.6 %; Mean Corpuscular Hemoglobin 27.3 pg (25.0-34.0); Mean Corpuscular Hgb Conc 32.6 g/dL (32.0-36.0); Mean Corpuscular Volume 83.8 fL (80.0-100.0); Mean Platelet Volume 10.1 fL (9.4-12.3); Monocytes # (auto) 0.49 K/uL (0.24-0.82); Monocytes % (auto) 6.9 %; Neutrophils # (auto) 4.91 K/uL (1.4-6.5); Neutrophils % (auto) 69.5 %; Platelet Count 202 K/uL (130-400); RDW Coefficient of Variation 13.6 % (11.5-14.5); RDW Standard Deviation 42.3 fL (36.4-46.3); Red Blood Count 4.32 M/uL (3.93-5.22); White Blood Count 7.06 K/ul (4.8-10.8)
[2022-03-22 06:09] LABS: BUN Creatinine Ratio 22.2 (10-20); Calcium 8.9 mg/dl (8.5-10.1); Creatinine Clr Calc Pharmacy 70.5 ml/min; Est GFR (Non-African American) 92.3 ml/min; Magnesium 1.8 mg/dl (1.7-2.4); Potassium 3.5 mmol/L (3.5-5.1)
[2022-03-22] MEDS: MoRPHine SULFATE 4 MG/ML 1 ML CARP\\VIAL IV PRN ×2 (07:36→17:57)
[2022-03-22] MEDS: ENOXAPARIN INJ 40 MG/0.4 ML SYR SQ SCH (08:18)
[2022-03-22] MEDS ORDERED: FAMOTIDINE 20 MG in SYRINGE 3 ML IV SCH (09:00)
--- NOTE | 2022-03-22 09:35 | Gastrointestinal Consultation ---
Date of Consultation March 22, 2022 Assessment & Plan (1) Nausea & vomiting: (2) Diarrhea: Patient is a 56 years old female with symptoms of nausea, vomiting, diarrhea without any saulo signs of GI bleeding. Was exposed to couple of family members to have cold or upper respiratory infection symptoms. She herself tested negative for COVID-19, RSV, influenza, strep. CT of the abdomen and pelvis showed signs of possible ileitis and enterocolitis. [place], has several animals also well water. Suspect may have infectious etiology. - Obtain stool cx, and Cdiff - CL diet, advance as tolerated - May try Bentyl 10mg BID prn if abd cramping and pain uncontrolled - IVF support, symptomatic management - OP colonoscopy in 4-6 weeks time - Pls recall GI over the weekend as needed Supervising Physician Co-Signing Physician Notes I performed a history and physical examination of the patient today, including specifically on physical exam - soft abdomen. I have discussed the patient's management with the advanced practitioner. Please refer to the nurse practitioner's note for the documented findings and plan of care. Acute gastroenteritis, feeling better now. Needs colonoscopy as OP Recall GI if needed. History of Present Illness Reason for Consultation: Nausea, vomiting, diarrhea Requesting Physician: Dr. Xavi Smith Attending Physician: Dr. Hollie Villarreal History of Present Illness Patient is a 56 years old female with past medical history is of gastric ulcer, dysphagia secondary to Schatzki's ring, restless leg syndrome, history of pneumonia, who presented yesterday with complaints of nausea, vomiting, diarrhea. Patient reports that she has been in contact with few people with upper respiratory infection symptoms. She has been having symptoms of sore throat for the last week, COVID-19, influenza, RSV, strep tests negative. Yesterday, she started having nausea, vomiting, diarrhea. She almost passed out on the commode. She denies seeing any hematemesis, coffee-ground emesis, dark tarry stools, or rectal bleeding. She is having diffuse abdominal tenderness, however mostly across upper abdomen. Denies any fevers, chills, however feels cold all the time. Denies any chest pain or shortness of breath. Upon evaluation, noted to have leukocytosis, electrolytes, kidney and liver functions are all normal. CT abdomen and pelvis showed signs of ileitis though there are also signs of colonic wall thickening suspicious for enterocolitis. Patient lives in a farm, has several animals and also has well water. She denies any recent travels, antibiotics exposure, new medications, herbal supplements, ingestion of raw or undercooked foods. As noted above, she has been in contact with a couple people with upper respiratory infection symptoms. Last EGD in 2020, dilation of Schatzki's ring was done. Last colonoscopy in 2013, hyperplastic colon polyp noted. ? Father (estranged) and uncle (70) may have colon cancer. Denies family histories of IBD Allergies Allergy/AdvReac Type Severity Reaction Status Date / Time oxycodone AdvReac Unknown nausea Verified 09/29/18 22:56 Home Medications Medication Instructions Recorded Confirmed Type albuterol sulfate 90 mcg/actuation 2 puff inhalation Q4 PRN Wheezing 09/29/18 09/29/18 History aerosol inhaler (Ventolin HFA) fluticasone propionate 50 2 spray intranasal Q12 09/29/18 09/29/18 History mcg/actuation nasal spray,suspension (Flonase Allergy Relief) omeprazole 20 mg capsule,delayed 20 mg PO DAILY 09/29/18 09/29/18 History release ranitidine HCl 150 mg tablet 300 mg PO HS 09/29/18 09/29/18 History (Zantac) Patient History Medical History (Updated 03/22/22 @ 09:33 by DAVID Haney) GERD (gastroesophageal reflux disease) Social History Smoking Status: Never smoker Hx Alcohol Use: No Hx Substance Use: No Preferred Language: Icelandic Communication Ability: Effective Floor Waxer Required: No Beliefs That Will Affect Care: None Current Living Situation: Spouse Other Information That Helps Us Care for You: No Feels Safe at Home: Yes Safety Concerns: Feels Safe At This Time Assistive Devices: None Review of Systems Review of Systems: All systems reviewed & are unremarkable except as noted in HPI & below Physical Exam Constitutional: WD/WN, vitals as above well groomed, cooperative and comfortable Eyes: PERRL, conjunctivae normal, anicteric sclerae ENMT: external ear and nose normal, oropharynx normal Respiratory: normal respiratory effort, lungs clear to auscultation Cardiovascular: RRR, no murmur, no edema Gastrointestinal (Abdomen): Diffuse TTP, no guarding. Bowel sounds hypoactive, soft Skin: no rashes, warm and dry no jaundice Psychiatric: A+Ox3, euthymic affect Lymphatic: no lymphedema Results & Data ([facility]) Vital Signs (Past 12 Hours) Vital Signs Temp Pulse Pulse Resp BP BP Pulse Ox 03/22/22 07:22 36.9 C 58 L 16 104/63 94 03/22/22 02:10 36.9 C 62 18 147/84 H 96 03/22/22 00:17 57 L 14 101/61 96 03/21/22 23:00 97 H 20 101/61 93 O2 Del Method 03/22/22 07:22 Room Air 03/22/22 02:10 Room Air 03/22/22 00:17 Room Air 03/21/22 23:00 (1) Diarrhea Diarrhea type: unspecified type Qualified Code(s): R19.7 - Diarrhea, un specified
[2022-03-22] MEDS: PANTOprazole 40 MG TAB PO SCH (10:56)
--- NOTE | 2022-03-22 17:14 | Electrocardiogram Report ---
Test Reason : Blood Pressure : / mmHG Vent. Rate : 071 BPM Atrial Rate : 071 BPM P-R Int : 156 ms QRS Dur : 082 ms QT Int : 402 ms P-R-T Axes : 060 022 025 degrees QTc Int : 436 ms Poor data quality, interpretation may be adversely affected Normal sinus rhythm Normal ECG When compared with ECG of 29-SEP-2018 20:39, T wave inversion no longer evident in Anterior leads Confirmed by Maximino Vinson ([id number]) on 03/22/2022 5:13:58 PM Referred By: REFERRED SELF Confirmed By:Maximino Vinson
[2022-03-22] MEDS ORDERED: DICYCLOMINE HCL 10 MG CAP PO PRN (17:16)
--- NOTE | 2022-03-22 17:16 | Hospitalist Progress Note ---
Date of Service March 22, 2022 Assessment & Plan (1) Nausea & vomiting: (2) Acute upper abdominal pain: (3) Ileitis: Plan This is a 56-year-old female with past medical history significant for gastric ulcer, history of dysphagia, rectocele, restless legs syndrome, history of pn eumonia, who presents with nausea, vomiting and diarrhea. Symptoms have improved with supportive care since arrival CT of the abdomen and pelvis showed signs of possible ileitis and enterocolitis Tested negative for COVID-19, RSV, influenza Stool culture and C. difficile ordered the patient has yet to have a bowel movement Tolerating clear liquids, advance as tolerated Continue IV fluids, symptomatic management Per GI consult, may try Bentyl 10 mg twice daily as needed for abdominal cramping. Plan for outpatient colonoscopy in 4 to 6 weeks. GI to sign off DVT Ppx: SQ lovenox Code status: FULL PCP: DOROTHY Wilson Dispo: Admitted to med/surg Admission and Anticipated Discharge Date Admission Date: March 21, 2022 Supervising Physician Co-Signing Physician Notes Patient seen and examined independently. Nausea, vomiting and diarrhea improved. Awaiting stool pcr. Supportive care for now Discharge in am if continues to improve. Subjective Patient seen and examined in 388 bed 2. Still feeling poorly but medication helping with nausea and diarrhea. Has not had a bout of vomiting or diarrhea since being moved upstairs. Denies eating anything unusual. No fever, still with minimal appetite but tolerating clear liquids. Denies any chills, headache, chest pain, shortness of breath, dysuria, hematuria. at bedside. Review of Systems Review of Systems: At least ten systems reviewed and negative except as noted in the HPI. Physical Exam Physical Exam: Gen: WD/WN, NAD, sitting in bedside chair, A&Ox3, appears acutely ill HEENT: Normocephalic, atraumatic, conjunctivae moist, sclerae anicteric, mucous membranes moist Lung: Clear to Auscultation bilaterally, no wheezes/rales/rhonchi Heart: Regular rate, regular rhythm, no murmurs, rubs, or gallops Abdomen: Soft, diffuse TTP but no guarding, ND +BS x 4 Extremities: no edema Skin: Warm, no rash Results & Data Results & Data ([facility]) Vital Signs (Past 12 Hours) Vital Signs Temp Pulse Resp BP Pulse Ox O2 Del Method 03/22/22 07:22 36.9 C 58 L 16 104/63 94 Room Air Laboratory Results Short CBC 03/21/22 03/22/22 Range/Units 17:55 05:15 WBC 16.32 H 7.06 (4.8-10.8) K/ul Hgb 15.1 11.8 L D (12.0-16.0) g/dl Hct 46.6 H 36.2 (34.1-44.9) % Plt Count 265 202 (130-400) K/uL BMP 03/21/22 03/22/22 17:55 05:15 Sodium 142 139 Potassium 4.1 3.5 Chloride 106 108 H Carbon Dioxide 26 26 BUN 15 16 Creatinine 0.95 0.72 Glucose 96 112 H Calcium 10.4 H 8.9 Liver Function 03/21/22 Range/Units 17:55 Total Bilirubin 0.4 (0.2-1.0) mg/dl AST 24 (13-39) U/L ALT 23 (7-52) U/L Alkaline Phosphatase 76 (34-104) U/L Albumin 4.8 (3.4-5.0) gm/dl Urine 03/21/22 Range/Units 17:55 Urine Color Dark Yellow Urine Appearance Cloudy A (Clear) Urine pH 5.5 (4.5-7.5) Ur Specific [place] 1.022 (1.000-1.030) Urine Protein 2+ H (Negative) Urine Glucose (UA) Negative (Negative) Diagnostic Findings Abdomen/Pelvis CT 03/21/22 17:30 CT OF THE ABDOMEN AND PELVIS WITH CONTRAST CLINICAL HISTORY: Diffuse abdominal pain, n/v/d COMPARISON STUDY: KUB September 29, 2018. Right upper quadrant ultrasound September 02, 2016. TECHNIQUE: Following IV administration of 92 mL of Optiray, axial images of the abdomen and pelvis were obtained from the lung bases to the proximal femurs. Images were reviewed in the axial, sagittal, and coronal planes. IV contrast was administered without complication. Automated exposure control was utilized for the study. A dose lowering technique was utilized adhering to the principles of ALARA. CT DOSE: 272.16 mGy.cm FINDINGS: Lung bases are unremarkable. No pneumatosis, free air or portal venous gas is present. Subcentimeter right hepatic lobe lesion likely reflects a cyst. Spleen, adrenal glands and pancreas are unremarkable. There is no biliary or pancreatic ductal dilatation. No peripancreatic or pericholecystic stranding is noted. There is a 9 mm lesion within the lower pole of the left kidney on axial image 165 of 446. This measures above water attenuation. This is difficult to characterize given its small size. There are numerous additional smaller renal lesions which probably reflect cysts. There is no hydronephrosis. Major vasculature is patent. The colon is mildly fluid-filled. Note is made of moderate wall thickening with mild adjacent stranding of multiple ileal loops. There is no abscess. The appendix is normal. Apparent wall thickening of portions of the colon is probably due to underdistention. 2.2 cm water attenuation left adnexal lesion probably reflects an ovarian cyst. No acute fracture or suspicious lesion within the visualized skeletal structures. IMPRESSION: 1. Moderate wall thickening with mild adjacent stranding of multiple ileal loops. This represents an ileitis. Although nonspecific, this is likely infectious or inflammatory in etiology. No abscess. No bowel obstruction. Normal appendix. 2. Apparent wall thickening of portions of the colon. This is likely due to underdistention however colonic involvement cannot be excluded and this could reflect an enterocolitis. 3. 9 mm left renal lesion. This is difficult difficult to characterize given its small size. This could reflect a complex cyst or small solid renal lesion. Nonemergent renal protocol MRI is recommended. ACT 112: Positive. There are findings on this exam that require communication between the performing entity and the patient following Patient Test Result Information Act ([place] Act 112) guidelines. Electronically signed by: Miko Stanton M.D. 03/21/2022 9:34 PM Chest X-Ray 03/21/22 17:31 XR chest 1V portable CLINICAL HISTORY: Cough. COMPARISON STUDY: Chest radiograph September 29, 2018. FINDINGS: Lung volumes are normal. Lungs are clear. There is no pneumothorax or pleural effusion. Cardiac size is normal. Mediastinal contours are normal. There is no evidence for pulmonary edema. IMPRESSION: No acute cardiopulmonary findings. ACT 112: Negative or not required by law. Electronically signed by: Miko Stanton M.D. 03/21/2022 7:07 PM
[2022-03-23] MEDS: D5W AND 1/2NSS 1,000 ML IV SCH (01:09)
[2022-03-23 06:22] LABS: Basophils # (auto) 0.03 K/uL (0-0.2); Basophils % (auto) 0.7 %; Eosinophils # (auto) 0.35 K/uL (0-0.50); Eosinophils % (auto) 8.7 %; Hematocrit (blood only) 32.7 % (34.1-44.9); Hemoglobin 10.5 g/dl (12.0-16.0); Lymphocytes % (auto) 47.1 %; Mean Corpuscular Hemoglobin 27.1 pg (25.0-34.0); Mean Corpuscular Hgb Conc 32.1 g/dL (32.0-36.0); Mean Corpuscular Volume 84.5 fL (80.0-100.0); Mean Platelet Volume 10.3 fL (9.4-12.3); Monocytes # (auto) 0.38 K/uL (0.24-0.82); Monocytes % (auto) 9.4 %; Neutrophils # (auto) 1.37 K/uL (1.4-6.5); Neutrophils % (auto) 34.1 %; Platelet Count 194 K/uL (130-400); RDW Coefficient of Variation 13.9 % (11.5-14.5); RDW Standard Deviation 42.9 fL (36.4-46.3); Red Blood Count 3.87 M/uL (3.93-5.22); White Blood Count 4.03 K/ul (4.8-10.8)
[2022-03-23 07:12] LABS: Calcium 8.4 mg/dl (8.5-10.1); Creatinine Clr Calc Pharmacy 84.5 ml/min; Est GFR (African American) 116.4 ml/min; Est GFR (Non-African American) 100.5 ml/min; Potassium 3.3 mmol/L (3.5-5.1)
[2022-03-23] MEDS: MoRPHine SULFATE 4 MG/ML 1 ML CARP\\VIAL IV PRN (07:24)
[2022-03-23] MEDS ORDERED: COUGH DROP (SUGAR FREE) LOZ 24 LOZ/1 BOX BUCCAL PRN ×2 (07:47→07:58)
[2022-03-23] MEDS ORDERED: AMOXICILLIN/CLAVULANATE 875 MG TAB PO SCH (08:00)
[2022-03-23] MEDS ORDERED: IOVERSOL 350 MG 100mL Prefilled Syringe IV ONE (09:07)
[2022-03-23] MEDS: ONDANSETRON INJ 2 MG/ML 2 ML VIAL IV PRN (09:16)
--- NOTE | 2022-03-23 09:21 | CT Scan Report ---
CT SCAN OF THE NECK WITH IV CONTRAST CLINICAL HISTORY: Sore throat. Dysphagia. COMPARISON STUDY: No priors TECHNIQUE: Following the IV administration of 94 cc of Optiray 350, CT scan of the soft tissues of th e neck was performed from the skull base to the upper chest. Images are reviewed in the axial, sagitt al, and coronal planes. IV contrast was administered without complication. A dose lowering techniqu e was utilized adhering to the principles of ALARA. CT DOSE: 305.33 mGy.cm FINDINGS: Pharynx: There is mild mucosal thickening and hyperemia is seen throughout the pharynx suggesting a n onspecific pharyngitis. The pharyngeal soft tissues are otherwise normal in appearance. The pharyngea l airway is widely patent. There is no evidence of mass lesion. The vocal cords are symmetric. The pa rapharyngeal fat is well maintained. The the epiglottis is normal prevertebral/retropharyngeal soft t issues are within normal limits. Lymphadenopathy: No cervical lymphadenopathy is seen Thyroid: Normal in size and attenuation. Salivary glands: The parotid and submandibular glands are within normal limits. Brain parenchyma: The visualized brain parenchyma at the skull base is normal in appearance. Vascular structures: The carotid arteries and jugular veins are patent. Skeletal structures: Imaged portions of the calvarium at the skull base are within normal limits. The cervical spine appears intact noting mild multilevel spondylosis. No lytic or blastic lesion is seen . Sinuses and mastoids: The visualized paranasal sinuses are clear. The mastoid air cells are well pneu matized. Orbits: No bony metastases are intact. Orbital contents are normal as visualized. Lung apices: Visualized apical lung parenchyma is clear. IMPRESSION: 1. Findings suggest a mild nonspecific pharyngitis. Clinical correlation will be required. 2. The airway is patent. 3. No fluid collection is seen to indicate abscess. ACT 112: Negative or not required by law. Electronically signed by: Jeff Casiano M.D. 03/23/2022 9:18 AM
[2022-03-23] MEDS: AMPICILLIN/SULBACTAM SOD 3,000 MG in 0.9 % SODIUM CHLORIDE 100 ML IV SCH ×3 (09:24→21:26)
[2022-03-23] MEDS: PANTOprazole 40 MG TAB PO SCH (09:25)
[2022-03-23] MEDS: ENOXAPARIN INJ 40 MG/0.4 ML SYR SQ SCH (09:25)
[2022-03-23] MEDS: ACETAMINOPHEN 325 MG TAB PO PRN ×2 (13:29→20:00)
[2022-03-23] MEDS ORDERED: POTASSIUM CHLORIDE PWD 20 MEQ PACK PO ONE (14:13)
--- NOTE | 2022-03-23 14:22 | Hospitalist Progress Note ---
Date of Service March 23, 2022 Assessment & Plan (1) Nausea & vomiting: (2) Acute upper abdominal pain: (3) Ileitis: Plan This is a 56-year-old female with past medical history significant for gastric ulcer, history of dysphagia, rectocele, restless legs syndrome, history of pneum onia, who presents with nausea, vomiting and diarrhea. Gastroenteritis, likely viral Sore throat (? Group A streptoccocal infection or Viral) Afebrile, normotensive and saturating well on room air CT of the abdomen and pelvis showed signs of possible ileitis and enterocolitis No leukocytosis, potassium3.3 CT soft tissue neck shows mild pharyngitis. Plan; We will obtain throat culture and start patient on Unasyn. Throat lozenges ordered for symptomatic relief --Await stool culture and PCR. Encourage oral hydration for now. -- Monitor hemoglobin and signs of bleeding; hemoglobin is down from 11.810.5. DVT Ppx: SQ lovenox Code status: FULL PCP: DOROTHY Wilson Dispo: Admitted to med/surg Admission and Anticipated Discharge Date Admission Date: March 21, 2022 Subjective Patient seen and examined at bedside. She has not had any episode of nausea vomiting or diarrhea today. She complains of severe sore throat. She says she has difficulty swallowing due to pain. Throat examination reveals erythema in posterior pharynx. CT soft tissue neck was done which showed mild nonspecific pharyngitis. Review of Systems Review of Systems: All systems reviewed & are unremarkable except as noted in Subjective Physical Exam Physical Exam: Constitutional: WD/WN, vitals as above, NAD, sitting up in bed, pleasant, conversing easily ENMT: Erythema present in posterior pharynx. Neck: trachea midline, no thyromegaly normal visual inspection Respiratory: normal respiratory effort, lungs clear to auscultation, no wheeze, rales, rhonchi. Normal insp/exp effort, no accessory muscle use Cardiovascular: RRR, no murmur, no edema Vessels: no JVD or carotid bruit Chest: normal inspection of chest Abdomen: Mild tenderness on palpation in periumbilical region; no guarding. Bowel sound present Musculoskeletal: no cyanosis or clubbing, extremities motor strength 5/5 Skin: no rashes, warm and dry normal turgor Neurologic: PERRL, EOMI, accommodation nl, no face palsy, no dysarthria CN's II- XI intact bilaterally and moves all extremities Psychiatric: A+Ox3, euthymic affect Lymphatic: no cervical or axillary lymphadenopathy : deferred Results & Data Results & Data ([facility]) Vital Signs (Past 12 Hours) Vital Signs Temp Pulse Resp BP Pulse Ox O2 Del Method 03/23/22 07:14 36.7 C 54 L 14 139/80 96 Room Air Laboratory Results Laboratory Results WBC 4.03 K/ul (4.8-10.8) L 03/23/22 05:19 RBC 3.87 M/uL (3.93-5.22) L 03/23/22 05:19 Hgb 10.5 g/dl (12.0-16.0) L 03/23/22 05:19 Hct 32.7 % (34.1-44.9) L 03/23/22 05:19 MCV 84.5 fL (80.0-100.0) 03/23/22 05:19 MCH 27.1 pg (25.0-34.0) 03/23/22 05:19 MCHC 32.1 g/dL (32.0-36.0) 03/23/22 05:19 RDW Std Deviation 42.9 fL (36.4-46.3) 03/23/22 05:19 RDW Coeff of Lana 13.9 % (11.5-14.5) 03/23/22 05:19 Plt Count 194 K/uL (130-400) 03/23/22 05:19 MPV 10.3 fL (9.4-12.3) 03/23/22 05:19 Immature Gran % (Auto) 0.0 % 03/23/22 05:19 Neut % (Auto) 34.1 % 03/23/22 05:19 Lymph % (Auto) 47.1 % 03/23/22 05:19 [place] % (Auto) 9.4 % 03/23/22 05:19 Eos % (Auto) 8.7 % 03/23/22 05:19 Baso % (Auto) 0.7 % 03/23/22 05:19 Neut # (Auto) 1.37 K/uL (1.4-6.5) L 03/23/22 05:19 Lymph # (Auto) 1.90 K/uL (1.2-3.4) 03/23/22 05:19 [place] # (Auto) 0.38 K/uL (0.24-0.82) 03/23/22 05:19 Eos # (Auto) 0.35 K/uL (0-0.50) 03/23/22 05:19 Baso # (Auto) 0.03 K/uL (0-0.2) 03/23/22 05:19 Immature Gran # (Auto) 0.00 K/uL (0.00-0.02) 03/23/22 05:19 PT 10.8 Seconds (9.0-12.0) 03/21/22 17:55 INR 1.0 (0.9-1.1) 03/21/22 17:55 Sodium 140 mmol/L (136-145) 03/23/22 05:19 Potassium 3.3 mmol/L (3.5-5.1) L 03/23/22 05:19 Chloride 110 mmol/L (98-107) H 03/23/22 05:19 Carbon Dioxide 27 mmol/L (21-32) 03/23/22 05:19 Anion Gap 3 (3-11) 03/23/22 05:19 BUN 6 mg/dl (6-23) 03/23/22 05:19 Creatinine 0.60 mg/dl (0.6-1.2) 03/23/22 05:19 Est Cr Clr Drug Dosing 84.5 ml/min 03/23/22 05:19 Est GFR ( Amer) 116.4 ml/min 03/23/22 05:19 Est GFR (Non-Af Amer) 100.5 ml/min 03/23/22 05:19 BUN/Creatinine Ratio 10.0 (10-20) 03/23/22 05:19 Glucose 98 mg/dl (70-99(Fasting)) 03/23/22 05:19 Lactate 1.5 mmol/L (0.4-2.0) 03/21/22 17:55 Calcium 8.4 mg/dl (8.5-10.1) L 03/23/22 05:19 Magnesium 1.8 mg/dl (1.7-2.4) 03/22/22 05:15 Total Bilirubin 0.4 mg/dl (0.2-1.0) 03/21/22 17:55 AST 24 U/L (13-39) 03/21/22 17:55 ALT 23 U/L (7-52) 03/21/22 17:55 Alkaline Phosphatase 76 U/L (34-104) 03/21/22 17:55 Troponin I High Sens 6.0 pg/ml (0-14) 03/21/22 17:55 Total Protein 8.2 gm/dl (6.0-8.3) 03/21/22 17:55 Albumin 4.8 gm/dl (3.4-5.0) 03/21/22 17:55 Globulin 3.4 gm/dl (2.5-4.0) 03/21/22 17:55 Albumin/Globulin Ratio 1.4 (0.9-2) 03/21/22 17:55 Lipase 19 U/L (11-82) 03/21/22 17:55 Urine Color Dark Yellow 03/21/22 17:55 Urine Appearance Cloudy (Clear) A 03/21/22 17:55 Urine pH 5.5 (4.5-7.5) 03/21/22 17:55 Ur Specific Jal 1.022 (1.000-1.030) 03/21/22 17:55 Urine Protein 2+ (Negative) H 03/21/22 17:55 Urine Glucose (UA) Negative (Negative) 03/21/22 17:55 Urine Ketones 1+ (Negative) H 03/21/22 17:55 Urine Blood Negative (Negative) 03/21/22 17:55 Urine Nitrite Negative (Negative) 03/21/22 17:55 Urine Bilirubin 1+ (Negative) H 03/21/22 17:55 Urine Urobilinogen Negative (Negative) 03/21/22 17:55 Ur Leukocyte Esterase Trace (Negative) H 03/21/22 17:55 Urine WBC (Auto) 10-30 /hpf (0-5) H 03/21/22 17:55 Urine RBC (Auto) 0-4 /hpf (0-4) 03/21/22 17:55 U Hyaline Cast (Auto) 10-30 /lpf (0-5) H 03/21/22 17:55 U Epithel Cells (Auto) >30 /lpf (0-5) H 03/21/22 17:55 Urine Bacteria (Auto) Negative (Negative) 03/21/22 17:55 Ur Renal Epithelial Cell Not Reportable 03/21/22 17:55 Urine Mucus Present (None Prsent) A 03/21/22 17:55 Urine Yeast Not Reportable 03/21/22 17:55 SARS-CoV-2 (PCR) NEGATIVE (Negative) 03/21/22 17:52 Monoscreen Negative (Negative) 03/21/22 17:55 Influenza Type A (PCR) Negative (Neg) 03/21/22 17:52 Influenza Type B (PCR) Negative (Neg) 03/21/22 17:52 RSV (RT-PCR) Negative (Neg) 03/21/22 17:52 Group A Strep (PCR) NOT DETECTED (NotDetected) 03/21/22 17:55 Impressions Abdomen/Pelvis CT 03/21/22 17:30 CT OF THE ABDOMEN AND PELVIS WITH CONTRAST CLINICAL HISTORY: Diffuse abdominal pain, n/v/d COMPARISON STUDY: KUB September 29, 2018. Right upper quadrant ultrasound September 02, 2016. TECHNIQUE: Following IV administration of 92 mL of Optiray, axial images of the abdomen and pelvis were obtained from the lung bases to the proximal femurs. Images were reviewed in the axial, sagittal, and coronal planes. IV contrast was administered without complication. Automated exposure control was utilized for the study. A dose lowering technique was utilized adhering to the principles of ALARA. CT DOSE: 272.16 mGy.cm FINDINGS: Lung bases are unremarkable. No pneumatosis, free air or portal venous gas is present. Subcentimeter right hepatic lobe lesion likely reflects a cyst. Spleen, adrenal glands and pancreas are unremarkable. There is no biliary or pancreatic ductal dilatation. No peripancreatic or pericholecystic stranding is noted. There is a 9 mm lesion within the lower pole of the left kidney on axial image 165 of 446. This measures above water attenuation. This is difficult to characterize given its small size. There are numerous additional smaller renal lesions which probably reflect cysts. There is no hydronephrosis. Major vasculature is patent. The colon is mildly fluid-filled. Note is made of moderate wall thickening with mild adjacent stranding of multiple ileal loops. There is no abscess. The appendix is normal. Apparent wall thickening of portions of the colon is probably due to underdistention. 2.2 cm water attenuation left adnexal lesion probably reflects an ovarian cyst. No acute fracture or suspicious lesion within the visualized skeletal structures. IMPRESSION: 1. Moderate wall thickening with mild adjacent stranding of multiple ileal lo ops. This represents an ileitis. Although nonspecific, this is likely infectious or inflammatory in etiology. No abscess. No bowel obstruction. Normal appendix. 2. Apparent wall thickening of portions of the colon. This is likely due to underdistention however colonic involvement cannot be excluded and this could reflect an enterocolitis. 3. 9 mm left renal lesion. This is difficult difficult to characterize given its small size. This could reflect a complex cyst or small solid renal lesion. Nonemergent renal protocol MRI is recommended. ACT 112: Positive. There are findings on this exam that require communication between the performing entity and the patient following Patient Test Result Information Act ([place] Act 112) guidelines. Electronically signed by: Miko Stanton M.D. 03/21/2022 9:34 PM Chest X-Ray 03/21/22 17:31 XR chest 1V portable CLINICAL HISTORY: Cough. COMPARISON STUDY: Chest radiograph September 29, 2018. FINDINGS: Lung volumes are normal. Lungs are clear. There is no pneumothorax or pleural effusion. Cardiac size is normal. Mediastinal contours are normal. There is no evidence for pulmonary edema. IMPRESSION: No acute cardiopulmonary findings. ACT 112: Negative or not required by law. Electronically signed by: Miko Stanton M.D. 03/21/2022 7:07 PM [address] Tissue Neck [address] 03/23/22 08:14 CT SCAN OF THE NECK WITH IV CONTRAST CLINICAL HISTORY: Sore throat. Dysphagia. COMPARISON STUDY: No priors TECHNIQUE: Following the IV administration of 94 cc of Optiray 350, CT scan of the soft tissues of the neck was performed from the skull base to the upper chest. Images are reviewed in the axial, sagittal, and coronal planes. IV contrast was administered without complication. A dose lowering technique was utilized adhering to the principles of ALARA. CT DOSE: 305.33 mGy.cm FINDINGS: Pharynx: There is mild mucosal thickening and hyperemia is seen throughout the pharynx suggesting a nonspecific pharyngitis. The pharyngeal soft tissues are otherwise normal in appearance. The pharyngeal airway is widely patent. There is no evidence of mass lesion. The vocal cords are symmetric. The parapharyngeal fat is well maintained. The the epiglottis is normal prevertebral/retropharyngeal soft tissues are within normal limits. Lymphadenopathy: No cervical lymphadenopathy is seen Thyroid: Normal in size and attenuation. Salivary glands: The parotid and submandibular glands are within normal limits. Brain parenchyma: The visualized brain parenchyma at the skull base is normal in appearance. Vascular structures: The carotid arteries and jugular veins are patent. Skeletal structures: Imaged portions of the calvarium at the skull base are within normal limits. The cervical spine appears intact noting mild multilevel spondylosis. No lytic or blastic lesion is seen. Sinuses and mastoids: The visualized paranasal sinuses are clear. The mastoid air cells are well pneumatized. Orbits: No bony metastases are intact. Orbital contents are normal as visualized. Lung apices: Visualized apical lung parenchyma is clear. IMPRESSION: 1. Findings suggest a mild nonspecific pharyngitis. Clinical correlation will be required. 2. The airway is patent. 3. No fluid collection is seen to indicate abscess. ACT 112: Negative or not required by law. Electronically signed by: Jeff Casiano M.D. 03/23/2022 9:18 AM
[2022-03-23 15:08] LABS: Adenovirus F 40/41 PCR Not Detected (NotDetected); Astrovirus PCR Not Detected (NotDetected); Campylobacter PCR Not Detected (NotDetected); Clostridium diff Toxin A/B PCR Not Detected (NotDetected); Cryptosporidium PCR Not Detected (NotDetected); Cyclospora cayetanensis PCR Not Detected (NotDetected); Entamoeba histolytica PCR Not Detected (NotDetected); Enteroaggregative E.coli(EAEC) Not Detected (NotDetected); Enteropathogenic E.coli (EPEC) Not Detected (NotDetected); Enterotoxigenic E.coli (ETEC) Not Detected (NotDetected); Giardia lamblia PCR Not Detected (NotDetected); Norovirus GI/GII PCR Not Detected (NotDetected); Plesiomonas shigelloides PCR Not Detected (NotDetected); Rotavirus A PCR Not Detected (NotDetected); Salmonella PCR Not Detected (NotDetected); Sapovirus PCR Not Detected (NotDetected); Shiga-like Toxin E.coli (STEC) Not Detected (NotDetected); Shigella/Enteroinvasive E.coli Not Detected (NotDetected); Vibrio cholerae PCR Not Detected (NotDetected); Vibrio species PCR Not Detected (NotDetected); Yersinia enterocolitica PCR Not Detected (NotDetected)
[2022-03-24] MEDS: ACETAMINOPHEN 325 MG TAB PO PRN ×2 (02:10→10:12)
[2022-03-24] MEDS: AMPICILLIN/SULBACTAM SOD 3,000 MG in 0.9 % SODIUM CHLORIDE 100 ML IV SCH ×3 (04:01→15:54)
[2022-03-24 06:36] LABS: Basophils # (auto) 0.04 K/uL (0-0.2); Eosinophils # (auto) 0.44 K/uL (0-0.50); Eosinophils % (auto) 11.3 %; Hematocrit (blood only) 35.1 % (34.1-44.9); Hemoglobin 11.5 g/dl (12.0-16.0); Immature Granulocytes # (auto) 0.01 K/uL (0.00-0.02); Immature Granulocytes % (auto) 0.3 %; Lymphocytes # (auto) 1.69 K/uL (1.2-3.4); Lymphocytes % (auto) 43.4 %; Mean Corpuscular Hemoglobin 27.3 pg (25.0-34.0); Mean Corpuscular Hgb Conc 32.8 g/dL (32.0-36.0); Mean Corpuscular Volume 83.4 fL (80.0-100.0); Mean Platelet Volume 10.8 fL (9.4-12.3); Monocytes # (auto) 0.39 K/uL (0.24-0.82); Neutrophils # (auto) 1.32 K/uL (1.4-6.5); Platelet Count 222 K/uL (130-400); RDW Coefficient of Variation 13.5 % (11.5-14.5); RDW Standard Deviation 40.7 fL (36.4-46.3); Red Blood Count 4.21 M/uL (3.93-5.22); White Blood Count 3.89 K/ul (4.8-10.8)
[2022-03-24 07:10] LABS: BUN Creatinine Ratio 6.1 (10-20); Creatinine Clr Calc Pharmacy 76.9 ml/min; Est GFR (African American) 112.9 ml/min; Est GFR (Non-African American) 97.4 ml/min; Potassium 3.5 mmol/L (3.5-5.1)
[2022-03-24] MEDS: ENOXAPARIN INJ 40 MG/0.4 ML SYR SQ SCH (09:32)
[2022-03-24] MEDS: PANTOprazole 40 MG TAB PO SCH (09:32)
--- NOTE | 2022-03-24 13:26 | Discharge Summary ---
Date of Service March 24, 2022 Admission HPI Per Admitting Provider A 56-year-old female with past medical history significant for gastric ulcer, history of dysphagia, rectocele, restless legs syndrome, history of pneumonia, who presents with nausea, vomiting and diarrhea. The patient says she has sore throat for the last 5 days, but today it is getting better, but today she had several episodes of diarrhea, and she felt almost passed out on the commode, she fell down, but she did not lose consciousness, then she started vomiting several episodes and had some abdominal discomfort. As this is not getting better, and was having profuse vomiting and diarrhea, she was brought to the hospital. Denies any fever, but she felt lot of chills today. Currently, no cough. She has some right earache for a couple of days, but it resolved now. No headache, no blurred visions, currently no runny nose, no chest pain. No blood in the stools. Normal bladder movements. No rash. Currently, resting comfortably and hemodynamically stable. No recent use of antibiotics. Except for granddaughter who has cold symptoms, no one is sick in the house. Admission Exam Per Admitting Provider GENERAL: The patient is of moderate build, not in acute distress. VITAL SIGNS: Temperature 36.5, pulse 65, respiratory rate 18, blood pressure 118/76, oxygen 97% on room air. HEENT: Pupils equal, round and reactive to light. Oral mucosa moist. NECK: No JVD. No neck masses. CARDIOVASCULAR: S1 and S2 heard. Regular rate and rhythm. No murmur, no gallop. RESPIRATORY SYSTEM: Normal AP diameter. No accessory muscle use. No wheezing, no crackles. ABDOMEN: Soft, bowel sounds present. Mild abdominal discomfort. No guarding, no rigidity, no distention. CENTRAL NERVOUS SYSTEM: Cranial nerves II through XII grossly intact, nonfocal. EXTREMITIES: No edema, no erythema Principal Diagnosis Viral gastroenteritis Acute pharyngitis Discharge Exam Constitutional: WD/WN, vitals as above, NAD, sitting up in bed, pleasant, conversing easily ENMT: Erythema present in posterior pharynx. Respiratory: normal respiratory effort, lungs clear to auscultation, no wheeze, rales, rhonchi. Normal insp/exp effort, no accessory muscle use Cardiovascular: RRR, no murmur, no edema Vessels: no JVD or carotid bruit Chest: normal inspection of chest Abdomen: Mild tenderness on palpation in periumbilical region; no guarding. Bowel sound present Musculoskeletal: no cyanosis or clubbing, extremities motor strength 5/5 Skin: no rashes, warm and dry normal turgor Neurologic: PERRL, EOMI, accommodation nl, no face palsy, no dysarthria CN's II- XI intact bilaterally and moves all extremities Psychiatric: A+Ox3, euthymic affect Lymphatic: no cervical or axillary lymphadenopathy : deferred Discharge Data Allergies Allergy/AdvReac Type Severity Reaction Status Date / Time oxycodone AdvReac Unknown nausea Verified 09/29/18 22:56 Consultations 03/21/22 22:03 ED Decision to Admit Stat 03/22/22 08:00 Consult Gastroenterology Routine Ordered Studies 03/21/22 17:30 CT abd pelvis IV con only Stat 03/23/22 08:14 CT soft tissue neck w con Urgent Hospital Course (1) Nausea & vomiting: (2) Acute upper abdominal pain: (3) Ileitis: Plan This is a 56-year-old female with past medical history significant for gastric ulcer, history of dysphagia, rectocele, restless legs syndrome, history of pneumonia, who presents with sore throat, nausea vomiting and diarrhea. On presentation to the ED, patient was afebrile, normotensive and saturating well in room air. CT abdomen pelvis was concerning for ileitis. Patient was admitted to general medical floor for further management. She was treated with supportive care with IV hydration and pain control. GI was consulted; recommended that the symptoms were most likely due to viral gastroenteritis. She was recommended to have outpatient colonoscopy in 4 to 6 weeks time. Patient's C. difficile and stool PCR was negative for any infection. Patient reported that her sore throat was getting worse to the point where it was difficulty swallowing. CT soft tissue neck was done which showed mild pharyngitis. Throat culture was ordered and patient was started on Unasyn. Overnight, patient reported that the pharyngitis pain has significantly improved. Patient was discharged home with 5 more days of amoxicillin- clavulanate. CT abdomen and pelvis on admission showed incidental 9 mm left renal lesion. Patient was informed regarding the findings. Patient was recommended to follow-up with PCP. Also, patient will need GI follow-up in 4 to 6 weeks time. Total Time Total Time Spent Total Time Spent (In Minutes): 35 Total Time Includes: Examination of the Patient, Discharge Planning, Medication Reconciliation, Communication With Other Providers and Other Discharge Plan Discharge Items Patient Disposition: Home - Self-Care Reason For Visit: N/V, D Discharge Diagnosis: Viral gastroenteritis Acute pharyngitis Condition on Discharge: Fair Activity: Resume your previous activity Non-emergency contact: Primary Care Provider Call non-emergency contact if: you have any medication questions Follow-up/Referrals: Heladio Wilson PA-C [Primary Care Provider] - Diet: Regular Addtl Attending Provider Instructions: You were admitted to the hospital with viral gastroenteritis and acute pharyngitis. Please take amoxicillin clavulanate twice daily for 5 more days to complete the antibiotic course. Please follow-up with GI doctor for colonoscopy in [address] scan of the abdomen on admission showed a 9 mm left renal lesion. Please discuss the finding with the primary care doctor. You may need further imaging or a urological evaluation. Pending Studies at Discharge: No Stand-Alone Forms: My [facility] [employer] Machine, Smoking Cessation Medications and DC Order Prescriptions: New amoxicillin-pot clavulanate 875-125 mg tablet 1 tab PO BID 5 Days Qty: 10 0RF Continued ranitidine HCl [Zantac] 150 mg tablet 300 mg PO HS omeprazole 20 mg Capsule,Delayed Release(Dr/Ec) 20 mg PO DAILY albuterol sulfate [Ventolin HFA] 90 mcg/actuation HFA aerosol inhaler 2 puff inhalation Q4 PRN (Reason: Wheezing) fluticasone propionate [Flonase Allergy Relief] 50 mcg/actuation spray,suspension 2 spray intranasal Q12 Discharge Orders: Discharge Order (Routine); Ordered 03/24/22 Ordered By: Xavi Lan/Other Patient Handouts: Self-Care for Vomiting and Diarrhea Admission Data Admit Date/Time: 03/21/22 23:46 Attending Provider: Xavi Smith Admit Provider: Je Wilson Primary Care Provider: Heladio Wilson Other Providers: Je Wilson ; Laz Swann ; Kimberly Britton Other Interventions: Discharge Summary Assessment (RN) Last Done: 03/24/22 15:19
== END 2022-03-24 19:12 | disposition home or self-care (01) | DRG 392 ==
LOC: ED 17:13 → 3N 23:46 → SUATTDRO 23:46 → 3N 03-22 00:17